=== PATIENT | female | born 1940 | race Caucasian/White ===

== ENCOUNTER 2018-01-08 16:59 | Inpatient (IN) | payer MEDICARE ==
[~2018-01-08] VITALS: Ht 162.6 cm; Wt 78.5 kg
[~2018-01-08 16:59] MED LIST: ADVAIR 250-501 EACH INH; CALCIUM 600 +1 EAC1 PO; CENTRUM SILVER1 EAC4 PO; CLARITIN10 MG PO; COZAAR 50 MG TA50 M2 PO; CRESTOR10 MG PO; LOPRESSOR25 PO; MAGOX 400400 MG PO; METFORMIN HCL500 MG PO; PLAVIX 75 MG TA75 M1 PO; PROAIR HFA8.5 GM; TRAMADOL 50 MG50 MG PO; WELLBUTRIN 75 M75 M1 PO; levothyroxin; potassium gluconate
[2018-01-08 17:01] VITALS: BP 98/75
--- NOTE | 2018-01-08 17:20 | NUR ---
Karuna SOLER AT BEDSIDE FOR NEBULIZER & ABG DRAW
[2018-01-08 17:34] LABS: HEMATOCRIT 47.7 % (37.0-47.0); HEMOGLOBIN 15.9 gm/dL (12.0-15.0); MCH 30.8 pg (26.0-34.0); MCHC 33.3 g/dL (28.0-37.0); MCV 92.4 fL (80.0-100.0); MPV 9.6 fl. (7.2-11.1); NUCLEATED RBCS 0 /100WBC; PLATELET COUNT* 378 thou/uL (150-400); RBC 5.16 mil/uL (4.20-5.00); RDW-CV 14.5 % (10.5-14.5); WBC 20.2 thou/uL (4.0-11.0)
[2018-01-08 17:39] LABS: BE -4.2 mmol/L (-2 to +3); HCO3 20.7 mmol/L (22.0-26.0); PCO2 37.9 mmHg (35.0-45.0); PO2 98.7 mmHg (75.0-100.0); pH 7.355 (7.340-7.450)
[2018-01-08 17:46] LABS: ANION GAP 9 mmol/L (7-16); BUN 22 mg/dL (7-18); CALCIUM 8.9 mg/dL (8.5-10.1); CHLORIDE 105 mmol/L (98-107); CO2 27 mmol/L (21-32); CREATININE 0.8 mg/dL (0.6-1.3); GLUCOSE 234 mg/dL (70-99); POTASSIUM 4.2 mmol/L (3.5-5.1); SODIUM 141 mmol/L (136-145)
[2018-01-08 17:56] LABS: ALBUMIN 3.1 g/dL (3.4-5.0); ALKALINE PHOSPHATASE 96 U/L (46-116); MAGNESIUM 1.8 mg/dL (1.8-2.4); NT-PRO BRAIN NAT PEPTIDE 67 pg/mL (<300); SGOT 16 U/L (15-37); SGPT 18 U/L (30-65); TOTAL BILIRUBIN 0.3 mg/dL (<0.1-1.0); TOTAL PROTEIN 6.6 g/dL (6.4-8.2); TROPONIN-I LEVEL <0.06 ng/mL (<0.06)
[2018-01-08] MEDS ORDERED: SYNTHROID137 MC1 PO (18:02)
[2018-01-08] MEDS ORDERED: NEURONTIN 300300 M1 PO (18:06)
[2018-01-08] MEDS ORDERED: DALIRESP500 MCG PO (18:08)
[2018-01-08 18:33] LABS: ABSOLUTE LYMPHOCYTES 5.5 thou/uL (0.8-5.3); ABSOLUTE MONOCYTES 1.4 thou/uL (0.0-1.2); ABSOLUTE NEUTROPHILS 13.3 thou/uL (1.6-8.1); PLATELET ESTIMATE ADEQUATE
[2018-01-08 18:43] LABS: PROTIME 10.2 Seconds (9.20-11.50)
[2018-01-08] MEDS ORDERED: SINGULAIR 10 MG10 M1 PO (19:05)
[2018-01-08] MEDS ORDERED: CHANTIX1 MG PO (19:06)
[2018-01-08] MEDS ORDERED: MUCINEX DM ER1 EAC1 PO (19:07)
[2018-01-08] MEDS ORDERED: ANTIDIARRHEAL PO (19:07)
[2018-01-08] MEDS ORDERED: CULTURELLE1 EACH PO (19:08)
[2018-01-08] MEDS ORDERED: TYLENOL EXTRA500 MG PO (19:08)
[2018-01-08] MEDS ORDERED: POTASSIUM GLUCO99 M2 PO (19:09)
[2018-01-08] MEDS ORDERED: ZANTAC 150MG T150 MG PO (19:10)
[2018-01-08] MEDS ORDERED: SPIRIVA RESPIMAT4 G1 NASAL (19:11)
[2018-01-08] MEDS ORDERED: ADVAIR 500-501 EACH INH (19:12)
[2018-01-08] MEDS ORDERED: PROAIR HFA8.5 GM INH (19:12)
[2018-01-08 20:17] VITALS: BP 120/63
[2018-01-09] VITALS (7 sets, daily range): BP systolic 115–152; BP diastolic 51–69
--- NOTE | 2018-01-09 04:19 | NUR ---
END SHIFT: PT RESTED WELL. NO COMPLAINTS, NO PAIN. ASSESSMENT UNCHANGED. VSS. REAMINS ON 3L NC. NO HIVES NOTED ON PATIENT AT THIS TIME. SR/ST ON MONITOR. IVF INFUSING WITHOUT DIFFICUTLY. SAFETY PRECAUTIONS IN PLACE. CALL LIGHT IN REACH. PERFORMED HOURLY ROUNDING. WILL CONT TO MONITOR.
[2018-01-09 10:11] LABS: ABSOLUTE LYMPHOCYTES 0.7 thou/uL (0.8-5.3); ABSOLUTE MONOCYTES 0.1 thou/uL (0.0-1.2); ABSOLUTE NEUTROPHILS 9.6 thou/uL (1.6-8.1); BASOPHILS 0.1 %; LYMPHOCYTES 7.2 %; MCHC 33.1 g/dL (28.0-37.0); MCV 93.5 fL (80.0-100.0); MONOCYTES 0.8 %; MPV 9.5 fl. (7.2-11.1); NUCLEATED RBCS 0 /100WBC; POLYS 91.9 %; RBC 3.95 mil/uL (4.20-5.00); RDW-CV 14.6 % (10.5-14.5); WBC 10.4 thou/uL (4.0-11.0)
[2018-01-09 10:22] LABS: CALCIUM 8.2 mg/dL (8.5-10.1); CREATININE 0.7 mg/dL (0.6-1.3); POTASSIUM 4.9 mmol/L (3.5-5.1)
[2018-01-09 10:31] LABS: ALBUMIN 2.7 g/dL (3.4-5.0); TOTAL BILIRUBIN 0.3 mg/dL (<0.1-1.0); TOTAL PROTEIN 5.6 g/dL (6.4-8.2)
[2018-01-09 10:43] LABS: HEMOGLOBIN 12.3 gm/dL (12.0-15.0); PLATELET COUNT* 235 thou/uL (150-400)
--- NOTE | 2018-01-09 10:46 | NUR ---
Nutrition: Pt admitted with lactic acidosis 2/2 anaphylaxis, hives. H/o COPD, DM II, PN, chr pain, smoker. Consult received for ">20# wt loss." Pt stated she usually weighs 180-185#. Current wt is 174#. She denied 20# loss. She did state she doesn't have much of an appetite, but is not active at all. "I eat when I'm hungry." She also tries to drink Boost at home on occ. RX: steroids, metformin. BG 178-259, albumin 2.7. CHO controlle ddiet. She agreed to Glucerna vanilla at lunches - RD will order. Consider Mild risk.
--- NOTE | 2018-01-09 11:56 | NUR ---
MET WITH PT AND DTR/JUSTIN TO DISCUSS HOME SITUATION/DC PLANNING. PT AND JUSTIN LIVE TOGETHER. JUSTIN WORKS NIGHTS AND SLEEPS DURING THE DAY. PT IS FAIRLY INDEPENDENT WITH ADLS. USES WALKER, O2 AND NEB THRU [facility] AND HAS A W/C IF NEEDED. PT STATES HER O2 IS FOR NOC AND PORTABLE BUT 'I LIKE IT' SO I WEAR IT DURING THE DAY TOO. PT STATED SHE HAS TRIED TO GET A PORTABLE CONCENTRATER THRU [facility] BUT DIDN'T 'QUALIFY'. PT HASN'T HAD HH BUT HER DID THRU [facility]. PT THINKS SHE MAY WANT HH AT DC. PLANS TO RETURN HOME WTIH HER DTR AND HOPES TO GO SOON. WILL FOLLOW
[2018-01-09 14:12] LABS: URINE BILIRUBIN NEGATIVE (Negative); URINE BLOOD NEGATIVE (Negative); URINE CLARITY CLEAR; URINE COLOR YELLOW; URINE GLUCOSE-RANDOM 3+ (Negative); URINE KETONES TRACE (Negative); URINE LEUKOCYTES-REFLEX NEGATIVE (Negative); URINE NITRITE-REFLEX NEGATIVE (Negative); URINE PROTEIN NEGATIVE (Negative); URINE SPECIFIC GRAVITY >= 1.030 (1.005-1.030); URINE UROBILINOGEN 0.2 E.U./dl (0.2-1.0)
--- NOTE | 2018-01-09 16:23 | EKG ---
[place] [address] ELECTROCARDIOGRAM REPORT Name: JENNY CAMPA Room: [address] ADM IN .R.#: [id number] Admission: 01/08/18 Attend Phys: Brina Zafar MD Discharge: Date of : 38 Report #: [id number] THIS REPORT FOR: //name// [facility] ED Test Date: 2018-01-08 Test Time: 17:35:45 Pat Name: JENNY CAMPA Department: Room: [facility] Gender: F Parachute Crown Sewer: : 1940 Requested By: Lisa Erwin Order Number: [id number] MD: Kalyan Simon Measurements Intervals [place] Rate: 106 P: 83 [place]: 155 QRS: 61 QRSD: 95 T: 60 QT: 352 QTc: 468 Interpretive Statements Sinus tachycardia Low voltage, extremity and precordial leads No previous ECG available for comparison Electronically Signed On 01-09-2018 16:23:10 CDT by Kaylan Simon [email or web address] <ELECTRONICALLY SIGNED> By: Kalyan Simon MD, [facility] 01/09/18 1623 1735 1735 Kalyan Simon MD, FACC /EPI
--- NOTE | 2018-01-09 17:04 | NUR ---
ASSUMED CARE OF PT AT 0720. PT REMAINS A&O X4 CALM AND COOPERATIVE. PT HAS HAD NO C/O PAIN OR DISTRESS. PT VSS ON 4L VIA NC. PT DOES BECOME SOA ON EXERTION AND LAYING FLAT. PT ALSO HAD HAD C/O SINUS DRAINAGE AND WAS GIVEN PRN MUCINEX THAT SHE REPORTED WAS EFFECTIVE. PT UP AD JOAQUIM AND HAS BEEN AMBULATING TO THE BATHROOM TO VOID. HOURLY ROUNDING COMPLETED FOR SAFTEY AND COMFORT.
--- NOTE | 2018-01-09 18:15 | NUR ---
REPORT GIVEN AND ASSUMED PATIENT CARE PATIENT IN BED AND EATING SUPPER, NO REQUESTS
[2018-01-10] VITALS: BP 152/69
[2018-01-10 02:11] LABS: GLYCOHEMOGLOBIN (HGB A1C) 5.6 % (4.8-5.6)
[2018-01-10 04:00] VITALS: BP 146/96
--- NOTE | 2018-01-10 04:08 | NUR ---
PATIENT PROGRESSING TOWARDS GOALS: PATIENTS O2 SAT MAINTAINED >92% ON 2L O2 NC (WHICH PATIENT WEARS CHRONICALLY AT HOME). PATIENT HAS RESTED COMFORTABLY WITHOUT C/O PAIN OR DISCOMFORT. PATIENT STATES SHE FEELS THOUGH HER "BREATHING IS MUCH BETTER." HOURLY ROUNDING OBSERVED. CALL LIGHT WITHIN REACH
[2018-01-10 08:00] VITALS: BP 113/70
--- NOTE | 2018-01-10 08:27 | NUR ---
ASSUMED CARE OF PT AT 0730. PT RESTING IN BED WAITING FOR BREAKFAST. PT A&0X4, DENIES ANY PAIN OR SHORTNESS OF BREATH AT THIS TIME. PT STATES SHE WANTS TO GO HOME. PT TRACING SR ON THE FLIGHT ATTENDANT. ON RA SAT 91%. PT WEARS 2L NC PRN AT HOME DURING THE DAY AND AT NOC, 02 NEARBY IF PT FEELS SHORT OF BREATH. PT UP WITH 1 ASSIST TO BATHROOM. PT GOAL FOR TODAY IS REPEAT CXR THIS AM, UP TO CHAIR FOR MEALS, INCREASE ACTIVITY AND POSSIBLE DISCHARGE HOME THIS AFTERNOON. AM ASSESSMENT CHARTED. MEDICATIONS PER JUL. PT REPOSITIONS SELF. HOURLY ROUNDING OBSERVED. BED IN LOW POSITION. CALL LIGHT WITHIN REACH. WILL CONTINUE PLAN OF CARE.
[2018-01-10] MEDS ORDERED: PROBIOTIC1 EAC1 PO (08:34)
[2018-01-10] MEDS ORDERED: LEVAQUIN 750 M750 MG PO (08:34)
[2018-01-10] MEDS ORDERED: PREDNISONE 10 M10 M1 PO (08:34)
[2018-01-10] MEDS ORDERED: DALIRESP500 MCG PO (08:34)
[2018-01-10 11:24] VITALS: BP 113/70
--- NOTE | 2018-01-10 13:29 | NUR ---
DISCHARGE ORDERS RECEIVED. DISCHARGE INSTRUCTIONS, CARE NOTES, SCRIPTS AND FOLLOW UP APPTS GIVEN TO PT. PT COMMUNICATES UNDERSTANDING OF DISCHARGE TEACHING. IV AND HAND FINISHER REMOVED. PT DISCHARGED WITH ALL BELONGINGS AND PAPERWORK VIA WHEELCHAIR WITH NURSING STAFF TO DAUGHTERS OWN PERSONAL VEHICLE.
== END 2018-01-10 13:27 | disposition home or self-care (01) | DRG 915 ==
LOC: M.ERS 16:59 → M.2W 18:39 → M.TBA-ER 18:39 → M.2W 20:37
PROVIDERS: Internal Medicine; Personal Emergency Response Attendant; ADMIT Internal Medicine
DX: T78.2XXA Anaphylactic shock, unspecified, initial encounter (principal); J18.9 Pneumonia, unspecified organism; J44.0 Chronic obstructive pulmonary disease with (acute) lower respiratory infection; E87.2 Acidosis; J44.1 Chronic obstructive pulmonary disease with (acute) exacerbation; J45.901 Unspecified asthma with (acute) exacerbation; E03.9 Hypothyroidism, unspecified; F32.9 Major depressive disorder, single episode, unspecified; E11.42 Type 2 diabetes mellitus with diabetic polyneuropathy; J20.9 Acute bronchitis, unspecified; I25.10 Atherosclerotic heart disease of native coronary artery without angina pectoris; F17.210 Nicotine dependence, cigarettes, uncomplicated; X58.XXXA Exposure to other specified factors, initial encounter; Y93.89 Activity, other specified; Y92.89 Other specified places as the place of occurrence of the external cause; Y99.8 Other external cause status; Z99.81 Dependence on supplemental oxygen; Z79.84 Long term (current) use of oral hypoglycemic drugs; Z79.899 Other long term (current) drug therapy; Z88.2 Allergy status to sulfonamides; Z88.6 Allergy status to analgesic agent; Z91.040 Latex allergy status; Z82.5 Family history of asthma and other chronic lower respiratory diseases; Z80.8 Family history of malignant neoplasm of other organs or systems

== ENCOUNTER 2018-02-05 01:09 | Emergency (ER) | payer MEDICARE ==
[~2018-02-05] VITALS: Ht 160 cm; Wt 71.2 kg
[~2018-02-05 01:09] MED LIST changes: +ADVAIR 500-501 EACH INH; +ANTIDIARRHEAL PO; +CHANTIX1 MG PO; +CULTURELLE1 EACH PO; +DALIRESP500 MCG PO; +LEVAQUIN 750 M750 MG PO; +MUCINEX DM ER1 EAC1 PO; +NEURONTIN 300300 M1 PO; +POTASSIUM GLUCO99 M2 PO; +PREDNISONE 10 M10 M1 PO; +PROAIR HFA8.5 GM INH; +PROBIOTIC1 EAC1 PO; +SINGULAIR 10 MG10 M1 PO; +SPIRIVA RESPIMAT4 G1 NASAL; +SYNTHROID137 MC1 PO; +TYLENOL EXTRA500 MG PO; +ZANTAC 150MG T150 MG PO
[2018-02-05] MEDS ORDERED: PREDNISONE50 MG PO (02:20)
[2018-02-05 03:00] VITALS: BP 99/63
== END 2018-02-05 03:01 | disposition home or self-care (01) ==
LOC: M.ERS 01:09
DX: L50.9 Urticaria, unspecified (principal); R11.2 Nausea with vomiting, unspecified; I25.10 Atherosclerotic heart disease of native coronary artery without angina pectoris; J44.9 Chronic obstructive pulmonary disease, unspecified; E11.40 Type 2 diabetes mellitus with diabetic neuropathy, unspecified; E03.9 Hypothyroidism, unspecified; I10 Essential (primary) hypertension; F17.210 Nicotine dependence, cigarettes, uncomplicated; Z88.2 Allergy status to sulfonamides; Z91.040 Latex allergy status; Z88.6 Allergy status to analgesic agent

== ENCOUNTER → 2018-02-12 | Outpatient (CLI) | payer MEDICARE ==
[~2018-02-12] MED LIST changes: +PREDNISONE50 MG PO
== END ==
LOC: M.ULTRA 11:00
DX: I65.23 Occlusion and stenosis of bilateral carotid arteries (principal); J45.909 Unspecified asthma, uncomplicated; E11.9 Type 2 diabetes mellitus without complications; I10 Essential (primary) hypertension; E03.9 Hypothyroidism, unspecified; G89.29 Other chronic pain; J44.9 Chronic obstructive pulmonary disease, unspecified; Z87.891 Personal history of nicotine dependence; I25.10 Atherosclerotic heart disease of native coronary artery without angina pectoris; Z72.89 Other problems related to lifestyle

== ENCOUNTER 2018-04-20 09:49 | Inpatient (IN) | payer MEDICARE ==
[~2018-04-20] VITALS: Ht 162.6 cm; Wt 66.7 kg
[2018-04-20 09:56] VITALS: BP 116/71
[2018-04-20] MEDS ORDERED: CHANTIX1 MG PO (10:04)
[2018-04-20 10:23] LABS: HEMOGLOBIN 14.1 gm/dL (12.0-15.0); MCH 30.9 pg (26.0-34.0); MCHC 33.5 g/dL (28.0-37.0); MCV 92.4 fL (80.0-100.0); MPV 8.6 fl. (7.2-11.1); NUCLEATED RBCS 0 /100WBC; PLATELET COUNT* 287 thou/uL (150-400); RBC 4.54 mil/uL (4.20-5.00); RDW-CV 15.2 % (10.5-14.5); WBC 20.2 thou/uL (4.0-11.0)
[2018-04-20 10:36] LABS: ANION GAP 10 mmol/L (7-16); BUN 13 mg/dL (7-18); CALCIUM 9.3 mg/dL (8.5-10.1); CHLORIDE 102 mmol/L (98-107); CO2 29 mmol/L (21-32); CREATININE 0.8 mg/dL (0.6-1.3); GLUCOSE 123 mg/dL (70-99); POTASSIUM 3.5 mmol/L (3.5-5.1); SODIUM 141 mmol/L (136-145)
[2018-04-20 10:40] LABS: APTT 29.3 Seconds (25.0-31.3); PROTIME 10.3 Seconds (9.20-11.50)
[2018-04-20 10:42] LABS: ALBUMIN 3.4 g/dL (3.4-5.0); ALKALINE PHOSPHATASE 101 U/L (46-116); LIPASE 90 U/L (73-393); SGOT 16 U/L (15-37); SGPT 19 U/L (30-65); TOTAL BILIRUBIN 0.7 mg/dL (<0.1-1.0); TOTAL PROTEIN 7.5 g/dL (6.4-8.2); TROPONIN-I LEVEL <0.06 ng/mL (<0.06)
[2018-04-20 11:09] LABS: ABSOLUTE BASOPHILS 0.2 thou/uL (0.0-0.2); ABSOLUTE EOSINOPHILS 0.2 thou/uL (0.0-0.7); ABSOLUTE MONOCYTES 1.6 thou/uL (0.0-1.2); ABSOLUTE NEUTROPHILS 17.2 thou/uL (1.6-8.1)
[2018-04-20 11:10] LABS: ANISOCYTOSIS Occasional; PLATELET ESTIMATE ADEQUATE
[2018-04-20 13:06] VITALS: BP 126/70
[2018-04-20 13:45] VITALS: BP 97/76
--- NOTE | 2018-04-20 13:45 | NUR ---
RECEIVED REPORT. PT TRANSFERRED TO ROOM 211 VIA CART. VSS. CARDIAC MONITORING IN PLACE SR. ADMISSION HISTORY AND ASSESSMENT COMPLETED CHARTED. PT ALERT AND ORIETNED BUT FORGETFUL. PT ON 2L PER NC. PT WEARS O2 AT HOME. O2 SAT 97%. IV SALINE LOCKED. PT DNEIES ANY PAIN AT THIS TIME. PT DOES REPORT GENERALIZED WEAKNESS. PT'S DTR AT BEDSIDE. PT ORIENTED TO ROOM AND CALL LIGHT. PT INFORMED OF FALL PRECATIONS DUE TO RECENT FALL. CALL LIGHT IS WITHIN REACH. BED ALARM ON FOR PT SAFETFY. WILL CONTINUE TO MONTIOR FOR DURAITON OF SHIFT.
[2018-04-20 16:23] VITALS: BP 107/49
--- NOTE | 2018-04-20 18:28 | NUR ---
VSS. CARDIAC MONTITORING IN PLACE WITH NO CHANGES THIS SHIFT. PT REMAINS ALERT AND ORIENTED. PT REMAINS ON 2L PER NC. PT BECOMES SOA WITH EXERTION. IVF INFUSING PER ORDERS. PT HAS HAD NO PAIN THIS SHIFT. PT IS UP WITH ASSISTANCE TO BSC. PT INFORMED OF PLAN OF CARE. CALL LIGHT IS WITHIN REAHC. WILL CONTINUE TO MONTIOR FOR DURATION OF SHIFT.
[2018-04-20 19:40] VITALS: BP 106/59
[2018-04-20 20:15] LABS: URINE BILIRUBIN NEGATIVE (Negative); URINE BLOOD NEGATIVE (Negative); URINE CLARITY CLEAR; URINE COLOR YELLOW; URINE GLUCOSE-RANDOM 1+ (Negative); URINE KETONES 1+ (Negative); URINE LEUKOCYTES-REFLEX NEGATIVE (Negative); URINE NITRITE-REFLEX NEGATIVE (Negative); URINE PROTEIN NEGATIVE (Negative); URINE SPECIFIC GRAVITY >= 1.030 (1.005-1.030); URINE UROBILINOGEN 0.2 E.U./dl (0.2-1.0)
[2018-04-21] VITALS (7 sets, daily range): BP systolic 97–131; BP diastolic 50–67
--- NOTE | 2018-04-21 05:12 | NUR ---
PT UP TP BSC, TOLERATED TRANSFER WELL. CONTINUES ON 2L NC. PT SR ON MONITOR. NO C/O PAIN THROUGHOUT SHIFT.
--- NOTE | 2018-04-21 07:52 | NUR ---
RECIEVED REPORT. ASSUMED CARE OF PT AT 0730. VSS. CARDIAC MONITORING IN PLACE SR. AM ASSESSMENT AND VITALS COMPLETED CHARTED. PT ALERT AND ORIENTED. PT ON 2L PER NC. PT BECOMES SOA WITH EXERTION. IV SALINE LOCKED. PT DENIES ANY PAIN OR DISCOMFORT THIS AM. PT IS UP WITH ASSISTANCE TO BSC. PT AND FAMILY INFORMED OF PLAN OF CARE. CALL LIGHT IS WITHIN REACH. WILL CONTINUE TO [facility] FOR DURATION OF SHIFT.
--- NOTE | 2018-04-21 11:08 | EKG ---
[place] [address] ELECTROCARDIOGRAM REPORT Name: JENNY CAMPA Room: [address] ADM IN .R.#: [id number] Admission: 04/20/18 Attend Phys: Susan Alcantara Discharge: Date of : 38 Report #: [id number] THIS REPORT FOR: //name// [facility] ED Test Date: 2018-04-20 Test Time: 10:04:44 Pat Name: JENNY CAMPA Department: Room: [address] Gender: F Documentation Lead: Gilbert PIMENTEL : 1940 Requested By: Cosmo Wallis Order Number: [id number] Reading MD: Yobani Mayers Measurements Intervals [place] Rate: 87 P: 76 NV: 196 QRS: 67 QRSD: 96 T: 55 QT: 375 QTc: 451 Interpretive Statements Sinus rhythm Compared to ECG 01/08/2018 17:35:45 Sinus tachycardia no longer present Electronically Signed On 04-21-2018 11:08:29 LICENSED MARINE ENGINEER by Yobani Mayers [email or web address] <ELECTRONICALLY SIGNED> By: Yobani Mayers MD, FACC 04/21/18 1108 1004 1004 Yobani Mayers MD, [facility] /EPI
--- NOTE | 2018-04-21 11:09 | EKG ---
[place] [address] ELECTROCARDIOGRAM REPORT Name: JENNY CAMPA Room: [address] ADM IN .R.#: [id number] Admission: 04/20/18 Attend Phys: Susan Alcantara Discharge: Date of : 38 Report #: [id number] THIS REPORT FOR: //name// [facility] Test Date: 2018-04-20 Test Time: 16:18:46 Pat Name: JENNY LOKESH Department: Room: [facility] Gender: F Elementary Secretary: JNADEEN : 1940 Requested By: Cosmo Wallis Order Number: [id number] MD: Yobani Mayers Measurements Intervals [place] Rate: 87 P: 81 TN: 186 QRS: 67 QRSD: 92 T: 57 QT: 389 QTc: 468 Interpretive Statements Sinus rhythm Baseline wander in lead(s) V1,V2 Compared to ECG 01/08/2018 17:35:45 Sinus tachycardia no longer present Electronically Signed On 04-21-2018 11:09:26 MITOCHONDRIAL DISORDERS COUNSELOR by Yobani Mayers [email or web address] <ELECTRONICALLY SIGNED> By: Yobani Mayers MD, FAC 04/21/18 1109 1618 1618 Yobani Mayers MD, [facility] /EPI
--- NOTE | 2018-04-21 11:10 | EKG ---
[place] [address] ELECTROCARDIOGRAM REPORT Name: JENNY CAMPA Room: [address] ADM IN M.R.#: [id number] Admission: 04/20/18 Attend Phys: Susan Alcantara Discharge: Date of : 38 Report #: [id number] THIS REPORT FOR: //name// [facility] Test Date: 2018-04-20 Test Time: 21:53:54 Pat Name: JENNY LOKESH Department: Room: [address] Gender: F Kiln Placer: [facility] : 1940 Requested By: Cosmo Wallis Order Number: [id number] Reading MD: Yobani Mayers Measurements Intervals [place] Rate: 82 P: 79 [place]: 179 QRS: 66 QRSD: 99 T: 55 QT: 403 QTc: 471 Interpretive Statements Sinus rhythm Compared to ECG 01/08/2018 17:35:45 Sinus tachycardia no longer present Electronically Signed On 04-21-2018 11:10:23 PAD HAND by Yobani Mayers [email or web address] <ELECTRONICALLY SIGNED> By: Yobani Mayers MD, [facility] 04/21/18 1110 52 52 Yobani Mayers MD, [facility] /EPI
--- NOTE | 2018-04-21 12:21 | NUR ---
Pt is A&O. Resides at home with her dtr. Dtr completes most of the ADLs. Pt states that she is able to complete her bathing and grooming. Pt has a walker, wc, home o2, neb and an [employer] portable concentrator. CM spoke with PT, Pt is hesitant to use her walker second to fear/safety. Dtr requesting HH at dc for Pt, Pt in agreement. No hx of HH or SNF. Pt in agreement with using [facility] at dc. Following.
--- NOTE | 2018-04-21 17:21 | NUR ---
VSS. CARDIAC MONTIORING IN PLACE WITH NO CHANGES THIS SHIFT. PT REMAINS ALERT AND OREINTED. PT PROGRESSING TOWARDS GOALS. PT REMAINS ON 2L PER NC. IV SALINE LOCKED. PT DENIES ANY PAIN OR DISCOMFORT THIS AM. PT WORKED WITH THERAPIES THIS SHIFT. PT INFORMED OF PLAN OF CARE. PT COMMUNICATES UNDERSTANDING. CALL LIGHT IS WITHIN REACH. WILL CONTINUE TO MONITOR FOR DURATION OF SHIFT.
[2018-04-22 04:26] VITALS: BP 98/61
--- NOTE | 2018-04-22 06:50 | NUR ---
PROGRESSING TOWARDS GOALS, DENIES DIZZYNESS OR VERTIGO. RESTING QUIETLY WITH EYES CLOSED INTERMITTENTLY THROUGHOUT NOC, UP TO BR WITH SBA, NUMBNESS/TINGLING BILAT FEET- CHRONIC PER PT, HX NEUROPATHY. STATES SCHEDULED NEUROTIN EFFECTIVE FOR NEUROPATHY TYPE PAIN TO BILAT FEET. OXYGEN 2L PER NC, SOA WITH AMBULATION RESOLVED WITH REST. UP TO BR WITH SBA AND USE OF WALKER, SLOW STEADY GAIT. DIABETIC VERBAL EDUCATION PROVIDED. BS 260 NOC, PER SS PROTOCOL ORDER, 6UNITS LISPRO SQ GIVEN. USING CALL LIGHT APPROPRIATELY. CALL LIGHT IN REACH. AWAKE, ALERT AND CONVERSATIVE AT THIS TIME.
[2018-04-22 08:00] VITALS: BP 104/43
[2018-04-22 12:00] VITALS: BP 102/47
[2018-04-22 12:29] VITALS: BP 103/45
[2018-04-22 15:30] VITALS: BP 155/50
[2018-04-22 20:00] VITALS: BP 125/39
[2018-04-23] VITALS: BP 106/42
[2018-04-23 04:00] VITALS: BP 119/72
--- NOTE | 2018-04-23 04:40 | NUR ---
PT SR ON MONITOR. RESTING IN BED. SOB WITH EXERTION. PT POTENTIALLY TO D/C TODAY. NO C/O PAIN THROUGHOUT THIS SHIFT.
[2018-04-23 08:07] VITALS: BP 130/56
[2018-04-23] MEDS ORDERED: PREDNISONE 10 M10 MG PO ×2 (11:03→11:19)
[2018-04-23] MEDS ORDERED: VENTOLIN HFA 1818 GM INH ×2 (11:03→11:19)
[2018-04-23] MEDS ORDERED: LEVAQUIN 750 M750 MG PO ×2 (11:03→11:19)
[2018-04-23 12:00] VITALS: BP 137/64
[2018-04-23 13:05] VITALS: BP 130/56
[2018-04-23 13:39] VITALS: BP 130/56
--- NOTE | 2018-04-23 13:41 | NUR ---
Pt discharging to home today, CM faxed dc orders to [facility]
--- NOTE | 2018-04-23 13:50 | NUR ---
PT DC'D HOME WITH ALL BELONGINGS. PT ACKNOWLEDGED DC INSTRUCTIONS AND MEDICATIONS. PT SENT WITH 3 RX. PT DENIED ANY C/O NEEDS.
== END 2018-04-23 13:50 | disposition home health service (06) | DRG 189 ==
LOC: M.ERS 09:49 → M.2W 11:53 → M.TBA-ER 11:53 → M.2W 13:50
PROVIDERS: Family Medicine; ADMIT Internal Medicine
DX: J96.00 Acute respiratory failure, unspecified whether with hypoxia or hypercapnia (principal); J44.1 Chronic obstructive pulmonary disease with (acute) exacerbation; R65.10 Systemic inflammatory response syndrome (SIRS) of non-infectious origin without acute organ dysfunction; I10 Essential (primary) hypertension; G89.29 Other chronic pain; R55 Syncope and collapse; I25.10 Atherosclerotic heart disease of native coronary artery without angina pectoris; E03.9 Hypothyroidism, unspecified; F17.210 Nicotine dependence, cigarettes, uncomplicated; E11.40 Type 2 diabetes mellitus with diabetic neuropathy, unspecified; Z99.81 Dependence on supplemental oxygen; Z79.899 Other long term (current) drug therapy; Z88.2 Allergy status to sulfonamides; Z88.6 Allergy status to analgesic agent; Z91.040 Latex allergy status; Z88.1 Allergy status to other antibiotic agents; Z79.84 Long term (current) use of oral hypoglycemic drugs

== ENCOUNTER 2018-10-24 16:39 | Emergency (ER) | payer MEDICARE ==
[~2018-10-24] VITALS: Ht 162.6 cm; Wt 72.6 kg
[~2018-10-24 16:39] MED LIST changes: +PREDNISONE 10 M10 MG PO; +VENTOLIN HFA 1818 GM INH
[2018-10-24 17:34] LABS: ABSOLUTE BASOPHILS 0.1 thou/uL (0.0-0.2); ABSOLUTE EOSINOPHILS 0.3 thou/uL (0.0-0.7); ABSOLUTE LYMPHOCYTES 1.8 thou/uL (0.8-5.3); ABSOLUTE MONOCYTES 0.9 thou/uL (0.0-1.2); ABSOLUTE NEUTROPHILS 7.7 thou/uL (1.6-8.1); BASOPHILS 0.6 %; HEMATOCRIT 41.3 % (37.0-47.0); HEMOGLOBIN 13.9 gm/dL (12.0-15.0); LYMPHOCYTES 16.7 %; MCH 31.3 pg (26.0-34.0); MCHC 33.7 g/dL (28.0-37.0); MCV 92.9 fL (80.0-100.0); MONOCYTES 8.6 %; MPV 8.9 fl. (7.2-11.1); NUCLEATED RBCS 0 /100WBC; PLATELET COUNT* 259 thou/uL (150-400); POLYS 71.1 %; RBC 4.44 mil/uL (4.20-5.00); RDW-CV 14.9 % (10.5-14.5); WBC 10.8 thou/uL (4.0-11.0)
[2018-10-24 17:39] LABS: ANION GAP 7 mmol/L (7-16); BUN 17 mg/dL (7-18); CALCIUM 9.2 mg/dL (8.5-10.1); CHLORIDE 103 mmol/L (98-107); CO2 33 mmol/L (21-32); CREATININE 0.7 mg/dL (0.6-1.3); GLUCOSE 175 mg/dL (70-99); SODIUM 143 mmol/L (136-145)
[2018-10-24 17:49] LABS: ALKALINE PHOSPHATASE 117 U/L (46-116); SGOT 13 U/L (15-37); SGPT 17 U/L (30-65); TOTAL BILIRUBIN 0.6 mg/dL (<0.1-1.0); TOTAL PROTEIN 7.1 g/dL (6.4-8.2); TROPONIN-I LEVEL <0.06 ng/mL (<0.06)
[2018-10-24] MEDS ORDERED: ZPAK PO (18:50)
[2018-10-24 19:22] VITALS: BP 112/46
--- NOTE | 2018-10-27 14:28 | EKG ---
[place] [address] ELECTROCARDIOGRAM REPORT Name: JENNY CAMPA Room: [facility]#: [id number] Admission: 10/24/18 Attend Phys: Discharge: 10/24/18 Date of : 38 Report #: [id number] THIS REPORT FOR: //name// [facility] ED Test Date: 2018-10-24 Test Time: 16:57:50 Pat Name: JENNYKORIN CAMPA Department: Room: Gender: F Fur Coat Sewer: : 1940 Requested By: Lawrence Schreiber Order Number: [id number] MD: Kalyan Simon Measurements Intervals [place] Rate: 90 P: 83 AR: 179 QRS: 66 QRSD: 90 T: 58 QT: 352 QTc: 431 Interpretive Statements Sinus rhythm Compared to ECG 04/20/2018 21:53:54 No significant changes Electronically Signed On 10-27-2018 14:28:23 CDT by Kalyan Simon [email or web address] <ELECTRONICALLY SIGNED> By: Kalyan Simon MD, [facility] 10/27/18 1428 1657 1657 Kalyan Simon MD, FACC /EPI
== END 2018-10-24 19:23 | disposition home or self-care (01) ==
LOC: M.ERS 16:39
PROVIDERS: Nurse Practitioner Family
DX: J44.9 Chronic obstructive pulmonary disease, unspecified (principal); E11.40 Type 2 diabetes mellitus with diabetic neuropathy, unspecified; E03.9 Hypothyroidism, unspecified; I10 Essential (primary) hypertension; I25.10 Atherosclerotic heart disease of native coronary artery without angina pectoris; G89.29 Other chronic pain; F17.210 Nicotine dependence, cigarettes, uncomplicated; Z88.6 Allergy status to analgesic agent; Z88.2 Allergy status to sulfonamides; Z91.040 Latex allergy status

== ENCOUNTER 2019-11-17 15:43 | Emergency (ER) | payer MEDICARE ==
[~2019-11-17] VITALS: Ht 162.6 cm; Wt 83.5 kg
[~2019-11-17 15:43] MED LIST changes: +ZPAK PO
[2019-11-17 16:11] LABS: ABSOLUTE BASOPHILS 0.1 thou/uL (0.0-0.2); ABSOLUTE LYMPHOCYTES 1.3 thou/uL (0.8-5.3); ABSOLUTE MONOCYTES 0.4 thou/uL (0.0-1.2); ABSOLUTE NEUTROPHILS 9.8 thou/uL (1.6-8.1); BASOPHILS 0.6 %; EOSINOPHILS 0.1 %; HEMOGLOBIN 14.2 gm/dL (12.0-15.0); LYMPHOCYTES 11.3 %; MCH 32.3 pg (26.0-34.0); MCHC 34.7 g/dL (28.0-37.0); MONOCYTES 3.2 %; NUCLEATED RBCS 0 /100WBC; PLATELET COUNT* 300 thou/uL (150-400); POLYS 84.8 %; RBC 4.41 mil/uL (4.20-5.00); WBC 11.6 thou/uL (4.0-11.0)
[2019-11-17 16:19] LABS: APTT 23.5 Seconds (25.0-31.3); PROTIME 10.2 Seconds (9.20-11.50)
[2019-11-17 16:22] LABS: POTASSIUM 4.3 mmol/L (3.5-5.1)
[2019-11-17 16:35] LABS: ALBUMIN 3.6 g/dL (3.4-5.0); MAGNESIUM 1.8 mg/dL (1.8-2.4); TOTAL BILIRUBIN 0.4 mg/dL (<0.1-1.0); TOTAL PROTEIN 7.5 g/dL (6.4-8.2)
[2019-11-17] MEDS ORDERED: PREDNISONE 20 M20 M1 PO (17:28)
[2019-11-17] MEDS ORDERED: ZPAK PO (17:28)
[2019-11-17 17:36] VITALS: BP 141/87
--- NOTE | 2019-11-18 10:39 | EKG ---
[place] [address] ELECTROCARDIOGRAM REPORT Name: JENNY CAMPA Room: [facility]#: [id number] Admission: 11/17/19 Attend Phys: Discharge: 11/17/19 Date of : 38 Date of Service: 11/17/19 1600 Report #: [id number] THIS REPORT FOR: //name// [facility] ED Test Date: 2019-11-17 Test Time: 16:00:57 Pat Name: JENNY CAMPA Department: Room: Gender: Director Of Analytics: [facility] : 1940 Requested By: Cosmo Wallis Order Number: [id number] MD: Justino Daigle Measurements Intervals [place] Rate: 96 P: 84 TX: 167 QRS: 61 QRSD: 95 T: 61 QT: 370 QTc: 468 Interpretive Statements Sinus rhythm Abnormal R-wave progression, early transition Compared to ECG 10/24/2018 16:57:50 No significant changes Electronically Signed On 11-18-2019 10:38:56 CDT by Justino Daigle [email or web address] <ELECTRONICALLY SIGNED> By: Justino Daigle MD, FAC 11/18/19 1038 1600 1600 Justino Daigle MD, [facility] /EPI
== END 2019-11-17 17:37 | disposition home or self-care (01) ==
LOC: M.ERS 15:43
PROVIDERS: Family Medicine
DX: J96.90 Respiratory failure, unspecified, unspecified whether with hypoxia or hypercapnia (principal); J44.9 Chronic obstructive pulmonary disease, unspecified; Z20.828 Contact with and (suspected) exposure to other viral communicable diseases; E11.40 Type 2 diabetes mellitus with diabetic neuropathy, unspecified; I10 Essential (primary) hypertension; I25.10 Atherosclerotic heart disease of native coronary artery without angina pectoris; E03.9 Hypothyroidism, unspecified; G89.29 Other chronic pain; F17.210 Nicotine dependence, cigarettes, uncomplicated; Z88.6 Allergy status to analgesic agent; Z91.040 Latex allergy status; Z88.0 Allergy status to penicillin; Z91.018 Allergy to other foods

== ENCOUNTER 2020-06-14 21:35 | Emergency (ER) | payer MEDICARE ==
[~2020-06-14] VITALS: Ht 160 cm; Wt 74.9 kg
[~2020-06-14 21:35] MED LIST changes: +PREDNISONE 20 M20 M1 PO
[2020-06-14] MEDS ORDERED: PLAVIX 75 MG TA75 MG PO (21:43)
[2020-06-14] MEDS ORDERED: LEVOTHYROXINE137 MC1 PO (21:43)
[2020-06-14] MEDS ORDERED: ROSUVASTATIN CA10 MG PO (21:44)
[2020-06-14] MEDS ORDERED: GRALISE600 MG PO (21:44)
[2020-06-14] MEDS ORDERED: SINGULAIR 10 MG10 MG PO (21:44)
[2020-06-14] MEDS ORDERED: DALIRESP500 MCG PO (21:44)
[2020-06-14] MEDS ORDERED: CHANTIX1 MG PO (21:45)
[2020-06-14] MEDS ORDERED: PROBIOTIC1 EAC3 PO (21:45)
[2020-06-14] MEDS ORDERED: ANTI-DIARRHEAL2 M1 PO (21:45)
[2020-06-14] MEDS ORDERED: ATENOLOL 25 MG25 M1 PO (21:46)
[2020-06-14] MEDS ORDERED: METFORMIN HCL500 M3 PO (21:46)
[2020-06-14] MEDS ORDERED: MAGNESIUM400 MG PO (21:46)
[2020-06-14] MEDS ORDERED: POTASSIUM99 M1 PO (21:46)
[2020-06-14] MEDS ORDERED: SPIRIVA18 MCG INH (21:46)
[2020-06-14 22:09] LABS: ABSOLUTE BASOPHILS 0.1 thou/uL (0.0-0.2); ABSOLUTE EOSINOPHILS 0.3 thou/uL (0.0-0.7); ABSOLUTE LYMPHOCYTES 1.2 thou/uL (0.8-5.3); ABSOLUTE MONOCYTES 0.8 thou/uL (0.0-1.2); ABSOLUTE NEUTROPHILS 7.6 thou/uL (1.6-8.1); BASOPHILS 0.8 %; EOSINOPHILS 2.8 %; HEMATOCRIT 39.5 % (37.0-47.0); HEMOGLOBIN 13.2 gm/dL (12.0-15.0); LYMPHOCYTES 12.5 %; MCH 30.4 pg (26.0-34.0); MCHC 33.4 g/dL (28.0-37.0); MCV 90.9 fL (80.0-100.0); MONOCYTES 7.6 %; MPV 8.5 fl. (7.2-11.1); NUCLEATED RBCS 0 /100WBC; PLATELET COUNT* 310 thou/uL (150-400); POLYS 76.3 %; RBC 4.34 mil/uL (4.20-5.00); RDW-CV 14.7 % (10.5-14.5)
[2020-06-14 22:18] LABS: APTT 24.4 Seconds (25.0-31.3)
[2020-06-14 22:21] LABS: ALBUMIN 2.9 g/dL (3.4-5.0); CALCIUM 9.7 mg/dL (8.5-10.1); CREATININE 0.8 mg/dL (0.6-1.3); POTASSIUM 3.1 mmol/L (3.5-5.1); TOTAL BILIRUBIN 0.5 mg/dL (<0.1-1.0); TOTAL PROTEIN 6.9 g/dL (6.4-8.2)
[2020-06-14 23:15] VITALS: BP 120/54
--- NOTE | 2020-06-15 14:17 | EKG ---
[place] [address] ELECTROCARDIOGRAM REPORT Name: JENNY CAMPA Room: [facility]#: [id number] Admission: 06/14/20 Attend Phys: Discharge: 06/14/20 Date of : 38 Date of Service: 06/14/202143 Report #: [id number] THIS REPORT FOR: //name// [facility] ED Test Date: 2020-06-14 Test Time: 21:44:39 Pat Name: JENNY CAMPA Department: Room: Gender: Radio Interference Supervisor: PARUL : 1940 Requested By: Cosmo Wallis Order Number: [id number] MD: Kalyan Simon Measurements Intervals [place] Rate: 122 P: 73 [place]: 114 QRS: 60 QRSD: 92 T: 26 QT: 328 QTc: 468 Interpretive Statements Sinus tachycardia Low voltage, precordial leads Compared to ECG 11/17/2019 16:00:57 Low QRS voltage now present Sinus rate has increased Electronically Signed On 06-15-2020 14:17:18 RACKET STRINGER by Kalyan Simon [email or web address] <ELECTRONICALLY SIGNED> By: Kalyan Simon MD, [facility] 06/15/20 1417 2144 2144 Kalyan Simon MD, [facility] /EPI
== END 2020-06-14 23:15 | disposition home or self-care (01) ==
LOC: M.ERS 21:35
PROVIDERS: Family Medicine
DX: S00.83XA Contusion of other part of head, initial encounter (principal); J44.9 Chronic obstructive pulmonary disease, unspecified; J45.909 Unspecified asthma, uncomplicated; E11.40 Type 2 diabetes mellitus with diabetic neuropathy, unspecified; E03.9 Hypothyroidism, unspecified; I25.10 Atherosclerotic heart disease of native coronary artery without angina pectoris; I10 Essential (primary) hypertension; F17.210 Nicotine dependence, cigarettes, uncomplicated; Z88.6 Allergy status to analgesic agent; Z91.040 Latex allergy status; Z88.2 Allergy status to sulfonamides; Z91.018 Allergy to other foods; W18.39XA Other fall on same level, initial encounter; Y93.89 Activity, other specified; Y92.098 Other place in other non-institutional residence as the place of occurrence of the external cause; Y99.8 Other external cause status

== ENCOUNTER → 2020-10-31 | Outpatient (CLI) | payer MEDICARE ==
[~2020-10-31] MED LIST changes: +ANTI-DIARRHEAL2 M1 PO; +ATENOLOL 25 MG25 M1 PO; +GRALISE600 MG PO; +LEVOTHYROXINE137 MC1 PO; +MAGNESIUM400 MG PO; +METFORMIN HCL500 M3 PO; +PLAVIX 75 MG TA75 MG PO; +POTASSIUM99 M1 PO; +PROBIOTIC1 EAC3 PO; +ROSUVASTATIN CA10 MG PO; +SINGULAIR 10 MG10 MG PO; +SPIRIVA18 MCG INH
== END ==
LOC: M.RAD 10:43
PROVIDERS: ATTEND Family Medicine
DX: M15.0 Primary generalized (osteo)arthritis (principal); E11.9 Type 2 diabetes mellitus without complications; R13.10 Dysphagia, unspecified; R07.0 Pain in throat; E03.9 Hypothyroidism, unspecified; E78.2 Mixed hyperlipidemia; Z99.81 Dependence on supplemental oxygen

== ENCOUNTER 2020-12-01 11:36 | Inpatient (IN) | payer MEDICARE ==
[~2020-12-01] VITALS: Ht 157.5 cm; Wt 64.1 kg
--- NOTE | ~2020-12-01 | EMS ---
[facility] [address] [place] [address] EMS Patient Care Report Name: JENNY AZEVEDO [id number] Admission: 12/01/20 Attend Phys: Discharge: Date of : 38 Report #: [id number] THIS REPORT FOR: //name// Report Transmitted: 12/01/2020 11:18 EMS Care Summary [facility] [place] Incident [id number] @ 12/01/2020 11:05 Incident Location [address] [place] [address], [place] [address] Patient Jenny Azevedo Female, 80 Years 1940 Patient Address [address] [place], [place] [id number] Patient History Chronic Obstructive Pulmonary Disease (COPD),Osteoporosis, Patient Allergies , Patient Medications Clopidogrel, Gabapentin, Singulair, Advair, Atenolol, Metformin, Chief Complaint Hip/pelvic pain Disposition Transported No Lights/[place] Dispatch Reason Falls Transported To [facility] Narrative Dispatched to address noted for a fall. [facility] en route and on scene at time noted. Arrived and found patient sitting in a chair in the parking lot of the building. Patient was walking with her walker and fell on her right side after slipping on the loose gravel. Patient reported that she did not lose [facility] [address] [place] [address] EMS Patient Care Report Name: JENNY AZEVEDO Room: [facility]#: [id number] Admission: 12/01/20 Attend Phys: Discharge: Date of : 38 Report #: [id number] consciousness or strike her head. Patient stated she had pain noted in right hip and right knee with no obvious trauma noted and CMS intact. Pain was only on movement. Patient stated she wanted to be transported to [facility] for care. patient was moved to stretcher via carry and she could not bear weight on that leg. ID cards with insurance cards and medication list was provided by family and left with the patient at [facility]. Once in ambulance, vitals where taken at time noted. No other trauma noted at this time. While en route, vitals where taken at time noted. No major change noted to patients condition. Pain continued with movement. Radio report was given at time noted. Arrived and took patient to intake room and then moved her to a wheel chair with the blanket under her. RN took verbal report and signed for patient care and patient signed for self. END report EMT-P Marcos Cornell Initial Vitals @11:12Pain: 09/12, @11:18Pain: 09/12, @11:16SpO2: 93, @11:18SpO2: 93, @11:21SpO2: 95, @11:22SpO2: 98, @11:26SpO2: 96, @11:28SpO2: 95, @11:18P: 82,R: 16,BP: 71/51,Revised Trauma: 6, @11:22P: 81,R: 16,BP: 107/63,Revised Trauma: 8, @11:28P: 80,R: 16,BP: 102/42,Revised Trauma: 8, @11:18GCS: 15, @:22GCS: 15, @:28GCS: 15, @11:12 Assessments @11:12MENTAL:SKIN:HEENT:LUNG SOUNDS:ABDOMEN:PELVIS//GI:EXTREMITIES:PULSE:NEURO: Impression Injury Procedures @11:18Oxygen Complications: ,Response: Unchanged Timeline 11:04,Call Received 11:04,Dispatch Notified 11:04,Psap Call 11:05,Dispatched 11:06,[place] [address] EMS Patient Care Report Name: DARBY AZEVEDOKaitna Zamorano Room: [facility]#: [id number] Admission: 12/01/20 Attend Phys: Discharge: Date of : 38 Report #: [id number] 11:10,On Scene 11:12,At Patient 11:12,BP: / M,PULSE: ,RR: R,SPO2: Ox,ETCO2: ,BG: ,PAIN: 5,GCS: , 11:12,BP: / M,PULSE: ,RR: R,SPO2: Ox,ETCO2: ,BG: ,PAIN: ,GCS: , 11:16,BP: / M,PULSE: ,RR: R,SPO2: 93 Ox,ETCO2: ,BG: ,PAIN: ,GCS: , 11:18,BP: / M,PULSE: ,RR: R,SPO2: 93 Ox,ETCO2: ,BG: ,PAIN: ,GCS: , 11:18,BP: 71/51 M,PULSE: 82,RR: 16 R,SPO2: Ox,ETCO2: ,BG: ,PAIN: ,GCS: , 11:18,BP: / M,PULSE: ,RR: R,SPO2: Ox,ETCO2: ,BG: ,PAIN: ,GCS: 15, 11:18,Depart Scene 11:18,Oxygen Complications: ,,Response: Unchanged 11:18,BP: / M,PULSE: ,RR: R,SPO2: Ox,ETCO2: ,BG: ,PAIN: 5,GCS: , 11:21,BP: / M,PULSE: ,RR: R,SPO2: 95 Ox,ETCO2: ,BG: ,PAIN: ,GCS: , 11:22,BP: / M,PULSE: ,RR: R,SPO2: 98 Ox,ETCO2: ,BG: ,PAIN: ,GCS: , 11:22,BP: 107/63 M,PULSE: 81,RR: 16 R,SPO2: Ox,ETCO2: ,BG: ,PAIN: ,GCS: , 11:22,BP: / M,PULSE: ,RR: R,SPO2: Ox,ETCO2: ,BG: ,PAIN: ,GCS: 15, 11:26,BP: / M,PULSE: ,RR: R,SPO2: 96 Ox,ETCO2: ,BG: ,PAIN: ,GCS: , 11:28,BP: / M,PULSE: ,RR: R,SPO2: 95 Ox,ETCO2: ,BG: ,PAIN: ,GCS: , 11:28,BP: 102/42 M,PULSE: 80,RR: 16 R,SPO2: Ox,ETCO2: ,BG: ,PAIN: ,GCS: , 11:28,BP: / M,PULSE: ,RR: R,SPO2: Ox,ETCO2: ,BG: ,PAIN: ,GCS: 15, 11:33,At Destination 11:41,Call Closed Disclaimer v1.1 Copyright 2020 [employer] This EMS Care Summary contains data elements from the applicable legal record (which may be displayed differently). It is designed to provide pertinent information for the following purposes: continuity of care, clinical quality, and state data reporting. The complete legal record is available to ED staff and administrators of the receiving hospital in [facility]'s Patient Tracker. All data is provided "as is."
[2020-12-01 11:38] VITALS: BP 104/68
[2020-12-01 13:33] LABS: ABSOLUTE BASOPHILS 0.1 thou/uL (0.0-0.2); ABSOLUTE EOSINOPHILS 0.5 thou/uL (0.0-0.7); ABSOLUTE LYMPHOCYTES 1.3 thou/uL (0.8-5.3); ABSOLUTE MONOCYTES 0.8 thou/uL (0.0-1.2); ABSOLUTE NEUTROPHILS 8.3 thou/uL (1.6-8.1); BASOPHILS 0.8 %; EOSINOPHILS 4.2 %; HEMATOCRIT 36.7 % (37.0-47.0); HEMOGLOBIN 12.3 gm/dL (12.0-15.0); LYMPHOCYTES 12.1 %; MCH 28.4 pg (26.0-34.0); MCHC 33.5 g/dL (28.0-37.0); MCV 84.7 fL (80.0-100.0); MONOCYTES 7.4 %; NUCLEATED RBCS 0 /100WBC; PLATELET COUNT* 346 thou/uL (150-400); POLYS 75.5 %; RBC 4.33 mil/uL (4.20-5.00); RDW-CV 15.9 % (10.5-14.5)
[2020-12-01 15:57] LABS: CALCIUM 8.5 mg/dL (8.5-10.1); CREATININE 0.6 mg/dL (0.6-1.3); POTASSIUM 3.8 mmol/L (3.5-5.1)
[2020-12-01 16:07] LABS: ALBUMIN 2.6 g/dL (3.4-5.0); TOTAL BILIRUBIN 0.2 mg/dL (<0.1-1.0); TOTAL PROTEIN 6.2 g/dL (6.4-8.2)
[2020-12-01 16:36] LABS: URINE BILIRUBIN NEGATIVE (Negative); URINE BLOOD NEGATIVE (Negative); URINE CLARITY CLEAR; URINE COLOR YELLOW; URINE GLUCOSE-RANDOM TRACE (Negative); URINE KETONES NEGATIVE (Negative); URINE LEUKOCYTES-REFLEX NEGATIVE (Negative); URINE NITRITE-REFLEX NEGATIVE (Negative); URINE PROTEIN NEGATIVE (Negative); URINE SPECIFIC GRAVITY 1.025 (1.005-1.030); URINE UROBILINOGEN 0.2 E.U./dl (0.2-1.0)
[2020-12-01 21:00] VITALS: BP 114/54
[2020-12-01 21:57] VITALS: BP 128/53
[2020-12-02 07:50] VITALS: BP 168/79
[2020-12-02 16:00] VITALS: BP 133/75
[2020-12-02 20:15] VITALS: BP 135/69
[2020-12-03 05:22] LABS: HEMATOCRIT 32.3 % (37.0-47.0); HEMOGLOBIN 10.9 gm/dL (12.0-15.0); MCH 28.1 pg (26.0-34.0); MCHC 33.8 g/dL (28.0-37.0); MCV 82.9 fL (80.0-100.0); MPV 8.2 fl. (7.2-11.1); RBC 3.9 mil/uL (4.20-5.00); RDW-CV 15.8 % (10.5-14.5); WBC 10.7 thou/uL (4.0-11.0)
[2020-12-03 05:44] LABS: CALCIUM 8.1 mg/dL (8.5-10.1); CREATININE 0.5 mg/dL (0.6-1.3); POTASSIUM 3.3 mmol/L (3.5-5.1)
--- NOTE | 2020-12-03 07:20 | CON ---
[facility] [address] [place] [address] CONSULTATION Name: LOKESHJENNY Room: [address] IN M.R.#: [id number] Admission: 12/01/20 Attend Phys: Susan Alcantara Discharge: Date of : 38 Report #: [id number] THIS REPORT FOR: cc: Austen Hernandez,Jeffrey Palmer II, DO ~ DATE OF CONSULTATION: 12/01/2020 CHIEF COMPLAINT: Right hip pain. HISTORY OF PRESENT ILLNESS: The patient is an 80-year-old female with history of ocular thromboembolism, osteoporosis and degenerative disk disease came to the Emergency Department after ambulance with sudden onset of the right knee and hip pain after a fall prior to arrival. They were leaving for a dentist appointment, walking considerable distance to the vehicle. The patient walks with a walker and states she could have slipped in the sand coming near the vehicle. She fell on her right side, injuring her knee, hip and shoulder. The patient denies any head trauma or loss of consciousness. The patient denies any headaches, lightheadedness, dizziness, or vision changes after the fall or prior to. At the Emergency Room, she did have pain in the right hip with rotation. It lasted throughout the entire visit and did get to a 10/10. Difficulty with any kind of movement. Rest does seem to relieve some of that. The patient denies any recent illness. Currently taking a blood thinner of Plavix and we are consulted for further evaluation. PAST MEDICAL HISTORY: Chronic obstructive pulmonary disease, asthma, prior broken ankle, dislocated elbow, and diabetes. She is on home O2. Currently daily smoker, DM 2, neuropathy, hypothyroidism, MDD, hypertension, chronic pain, CAD. HOME MEDICATIONS: Listed in the chart and ER physician documentation. ALLERGIES: STATED TO ASPIRIN, LATEX, PRIYANKA AND SULFA. FAMILY HISTORY: Noncontributory. SOCIAL HISTORY: The patient does smoke and drink alcohol. REVIEW OF SYSTEMS: CONSTITUTIONAL: The patient denies any fevers or chills or diaphoresis. EYES: The patient denies any eye pain or blurred vision. HENT: Denies any congestion or headache. RESPIRATORY: Denies any cough, shortness of breath. MUSCULOSKELETAL: The patient does have right leg pain [place] [address] CONSULTATION Name: LOKESHJENNY Room: [address] IN [facility]#: [id number] Admission: 12/01/20 Attend Phys: Susan Alcantara Discharge: Date of : 39 Report #: [id number] A 12-point review of systems is negative other than pertinent positives in the HPI and rest of the review of systems as above. PHYSICAL EXAMINATION: VITAL SIGNS: Pulse ox 100%, blood pressure 104/68, temperature 36.2, pulse 68, respirations 14. GENERAL: The patient is alert and oriented, cooperative with exam. Does have mild drowsiness from some of the pain medication. EYES: Conjunctivae normal lids. PERRLA, EOMI. HENT: Head is atraumatic. TMs clear bilaterally. Normocephalic. NECK: Supple, no masses, nontender. LUNGS: No respiratory distress. Normal air movement. No wheezes or rales. CARDIAC: Regular rhythm. No gallops or rubs. ABDOMEN: Soft, nontender, no HSM. BACK: The patient has no lumbar tenderness or thoracic tenderness. EXTREMITIES: The patient's right hip is flexed and internally rotated with pain range of motion secondary to previous fracture. Right knee is also flexed and associated with pain in the joint. Difficult to manipulate the knee due to pain in the hip. The patient's foot has full range of motion and strength. There is only minor numbness on the lateral side of the foot. Shoulders has full range of motion. NEUROLOGIC: Cranial nerves are normal as tested. SKIN: Normal color, no rash, warm and dry. Only minor bruising or ecchymosis. No significant lacerations. LABORATORY STUDIES: Chemistries: Sodium is 141, potassium 3.8, chloride of 107, glucose 169, which is high, AST of 18, ALT of 22, total protein 6.2 and albumin is 2.6. CBC: White blood cells 11.0, which is the high end of normal. Hemoglobin is 12.3, platelet count 346. Urine: The patient had a clean catch of negative for any ketones or blood, only trace glucose. IMAGING: The patient's right knee x-ray shows no evidence of fracture, dislocation or arthritis noted. The patient's x-ray of the right pelvis and right hip healed. Degenerative changes of the lumbar spine. A minimally impacted right intertrochanteric hip fracture prominent at the inferior portion of the right femoral neck on the AP projection. No left hip fracture and nondisplaced right hip fracture. IMPRESSION: 1. Right hip fracture, intertrochanteric nondisplaced at this time, but will need surgical intervention to maintain its stability. 2. Anticoagulation. 3. Hypertension, [place] [address] CONSULTATION Name: JENNY CAMPA Room: [address] IN [facility]#: [id number] Admission: 12/01/20 Attend Phys: Susan Alcantara Discharge: Date of : 39 Report #: [id number] PLAN: At this time was discussed with ER physician that due to Plavix we would like to hold this for 2 days prior to do any surgery and I would allow her to eat at this time. We will continue medical workup to make sure the patient is stable to undergo surgery. She may continue here until Saturday and would anticipate Saturday morning surgery as long as no significant bleeding is noted throughout any other portions of her body. We will plan to keep the patient n.p.o. on Saturday night with anticipated morning surgery on Saturday. The patient is to continue pain medications as necessary. Continue bed rest and catheter to be placed. I appreciate this consultation. <ELECTRONICALLY SIGNED> By: Jeffrey Ho II, DO 12/03/20719 1730 Jeffrey Ho II, DO /nt
[2020-12-03 11:57] VITALS: BP 125/66
[2020-12-03 13:39] LABS: HEMATOCRIT 33.1 % (37.0-47.0); HEMOGLOBIN 11.1 gm/dL (12.0-15.0)
[2020-12-03 16:29] VITALS: BP 103/48
[2020-12-03 19:35] VITALS: BP 124/68
[2020-12-04] VITALS: BP 104/62
[2020-12-04 03:50] VITALS: BP 99/45
[2020-12-04 04:55] LABS: HEMATOCRIT 26.7 % (37.0-47.0); HEMOGLOBIN 9.2 gm/dL (12.0-15.0); MCH 28.8 pg (26.0-34.0); MCHC 34.5 g/dL (28.0-37.0); MCV 83.4 fL (80.0-100.0); MPV 8.2 fl. (7.2-11.1); RBC 3.2 mil/uL (4.20-5.00); RDW-CV 15.6 % (10.5-14.5); WBC 10.1 thou/uL (4.0-11.0)
[2020-12-04 05:11] LABS: CREATININE 0.6 mg/dL (0.6-1.3)
[2020-12-04 05:14] LABS: POTASSIUM 4.4 mmol/L (3.5-5.1)
[2020-12-04 07:50] VITALS: BP 90/36
[2020-12-04 17:32] VITALS: BP 101/39
[2020-12-04 21:21] VITALS: BP 117/55
--- NOTE | 2020-12-05 07:14 | OP ---
[facility] [address] [place] [address] OPERATIVE REPORT Name: LOKESHJENNY Room: [address] IN .R.#: [id number] Admission: 12/01/20 Attend Phys: Susan Alcantara Discharge: Date of : 39 Report #: [id number] THIS REPORT FOR: cc: Austen Hernandez DO Mouse,Austen Shankar,Jeffrey Miranda II, DO ~ DATE OF SURGERY: 12/03/2020 PREOPERATIVE DIAGNOSIS: Right hip intertrochanteric fracture. POSTOPERATIVE DIAGNOSIS: Right hip intertrochanteric fracture. PROCEDURE PERFORMED: Right hip intramedullary nailing of intertrochanteric fracture. SURGEON: Jeffrey Ho II, DO BUHR DRESSER: None. ANESTHESIA: Per operative record. ESTIMATED BLOOD LOSS: 50 mL. ANTIBIOTICS: A 2 grams Ancef preoperatively. DRAINS: None. COMPLICATIONS: None. CONDITION: The patient stable to recovery room. IMPLANTS USED: [place] gamma nail with appropriate lag and locking screw. OPERATIVE PROCEDURE: The patient was taken to the operative suite, placed supine on the [place] table. The nonoperative leg was placed in lithotomy position all the way and the operative leg was placed on the [place] table and the fracture was closed reduced under C-arm fluoroscopy. The right hip was sterilely prepped and draped. Surgery began by proximal incision over the trochanter. This was carried down to subcutaneous tissues through the tensor fascia. The proximal point of the trochanter was found and the K-wire was placed in the intramedullary canal and visualized both the AP and lateral directions. The tissue sleeve was then utilized with a one-step reamer and reaming was performed of the proximal aspect of the femur. The short gamma nail was then utilized and placed on its financial economist, it was then placed down into the intramedullary canal and checked with both AP and lateral direction to be at appropriate depth. The guide pin was then placed up through the lag screw up [place] [address] OPERATIVE REPORT Name: JENNY CAMPA Room: [address] IN ..#: [id number] Admission: 12/01/20 Attend Phys: Susan Alcantara Discharge: Date of : 39 Report #: [id number] the inferior and center position of the femoral head. This was then measured and reamed to appropriate depth with the reamer and then the appropriate lag screw was placed. This was then compressed and a proximal antirotational screw was placed into the nail. The distal screw targeting guide was then applied. Small incision was made and this was taken down to the bone. Drill was then utilized through the static hole. This was then measured and appropriate length screw was then applied. Final images were taken. The financial economist handle was removed. Wound was then copiously irrigated. The tensor fascia was closed with a 1 Vicryl and subcuticular layer was closed with a 2-0 Vicryl. Proximal incision was closed with Monocryl. The incisions were closed with nylon. Dermabond, sterile dressings were applied. The patient was transferred to recovery room in stable condition. Counts correct x 2. <ELECTRONICALLY SIGNED> By: Jeffrey Ho II, DO 12/05/20 0714 [id number] 02Jeffrey Ho II, DO /nt
[2020-12-05 08:00] VITALS: BP 97/45
--- NOTE | 2020-12-05 09:52 | EKG ---
[place] [address] ELECTROCARDIOGRAM REPORT Name: JENNY CAMPA Room: [address] ADM IN M.R.#: [id number] Admission: 12/01/20 Attend Phys: Serafin Hester Discharge: Date of : 38 Date of Service: 12/02/20 1523 Report #: [id number] THIS REPORT FOR: //name// [facility] Test Date: 2020-12-02 Test Time: 15:23:35 Pat Name: JENNY CAMPA Department: Room: [address] Gender: F Database Reporting Consultant: RUBEN : 1940 Requested By: Christian Merida Order Number: [id number] Reading MD: Justino Daigle Measurements Intervals [place] Rate: 110 P: 81 NC: 155 QRS: 69 QRSD: 90 T: 53 QT: 349 QTc: 473 Interpretive Statements Sinus tachycardia artifact noted Minimal ST depression, anterolateral leads Compared to ECG 06/14/2020 21:44:39 rate has slowed Electronically Signed On 12-05-2020 9:52:39 CDT by Justino Daigle [email or web address] <ELECTRONICALLY SIGNED> By: Justino Daigle MD, FAC 12/05/20 0952 1523 1523 Justino Daigle MD, [facility] /EPI
[2020-12-05 16:50] VITALS: BP 150/53
[2020-12-05 23:00] VITALS: BP 105/58; BP 162/74
[2020-12-06 08:00] VITALS: BP 129/51
[2020-12-06] MEDS ORDERED: ELIQUIS2.5 MG PO (09:24)
[2020-12-06] MEDS ORDERED: TRAMADOL 50 MG50 MG PO (09:25)
[2020-12-06] MEDS ORDERED: NORCO5 PO (09:27)
[2020-12-06 09:28] VITALS: BP 129/51
== END 2020-12-06 11:06 | DRG 481 ==
LOC: M.ERS 11:36 → M.2W 16:19 → M.3W 16:19 → M.TBA-ER 16:19 → M.2W 21:25 → M.3W 12-02 06:39
PROVIDERS: Internal Medicine; Physician Assistant; ADMIT Internal Medicine; ATTEND Internal Medicine
PROC: 0QS606Z Reposition Right Upper Femur with Intramedullary Internal Fixation Device, Open Approach (ICD-10-PCS; principal; 2020-12-03)
DX: S72.144A Nondisplaced intertrochanteric fracture of right femur, initial encounter for closed fracture (principal); E44.0 Moderate protein-calorie malnutrition; D62 Acute posthemorrhagic anemia; I10 Essential (primary) hypertension; Z20.822 Contact with and (suspected) exposure to COVID-19; M81.0 Age-related osteoporosis without current pathological fracture; J44.9 Chronic obstructive pulmonary disease, unspecified; E11.40 Type 2 diabetes mellitus with diabetic neuropathy, unspecified; E03.9 Hypothyroidism, unspecified; F32.9 Major depressive disorder, single episode, unspecified; G89.29 Other chronic pain; I25.10 Atherosclerotic heart disease of native coronary artery without angina pectoris; M19.90 Unspecified osteoarthritis, unspecified site; E87.6 Hypokalemia; W01.0XXA Fall on same level from slipping, tripping and stumbling without subsequent striking against object, initial encounter; Z99.81 Dependence on supplemental oxygen; Z79.899 Other long term (current) drug therapy; Z88.8 Allergy status to other drugs, medicaments and biological substances; Z91.040 Latex allergy status; Z88.2 Allergy status to sulfonamides; Z91.018 Allergy to other foods; Z68.25 Body mass index [BMI] 25.0-25.9, adult; Y93.89 Activity, other specified; Y92.89 Other specified places as the place of occurrence of the external cause; Y99.8 Other external cause status

== ENCOUNTER 2020-12-05 16:31 | Inpatient (IN) | payer MEDICARE ==
[~2020-12-05] VITALS: Ht 154.9 cm; Wt 62.0 kg
[2020-12-06] MEDS ORDERED: ELIQUIS2.5 MG PO (09:24)
[2020-12-06] MEDS ORDERED: TRAMADOL 50 MG50 MG PO (09:25)
[2020-12-06] MEDS ORDERED: NORCO5 PO (09:27)
[2020-12-06 13:54] VITALS: BP 108/50
--- NOTE | 2020-12-06 14:34 | NUR ---
PATIENT ARRIVED TO ROOM ALERT AND ORIENTED X4. ORIENTED TO ROOM AND BED CONTROLS. ASSESSMENT DONE CHARTED. CALL LIGHT WITHIN REACH. UP IN CHAIR AND CHAIR ALARM ON.
[2020-12-06 19:00] VITALS: BP 139/66
--- NOTE | 2020-12-06 20:36 | NUR ---
PATIENT ORIENTED TO ROOM AND BED CONTROL. UP WITH 2 ASSIST GAIT BELT AND WALKER FOR PIVOT TRANSFER TO BED. REMAINS 50% WEIGHTBEARING TO RIGHT LOWER EXTREMITY.CALL LIGHT WITHIN REACH.
[2020-12-07 05:40] LABS: HEMATOCRIT 24.7 % (37.0-47.0); HEMOGLOBIN 8.5 gm/dL (12.0-15.0); MCH 28.8 pg (26.0-34.0); MCHC 34.5 g/dL (28.0-37.0); MCV 83.6 fL (80.0-100.0); MPV 7.8 fl. (7.2-11.1); RBC 2.96 mil/uL (4.20-5.00); RDW-CV 15.6 % (10.5-14.5); WBC 7.4 thou/uL (4.0-11.0)
[2020-12-07 05:44] LABS: CALCIUM 7.9 mg/dL (8.5-10.1); CREATININE 0.5 mg/dL (0.6-1.3); POTASSIUM 3.9 mmol/L (3.5-5.1)
--- NOTE | 2020-12-07 07:00 | NUR ---
ASSUMED PT CARE AT 1930. ASSESSMENT COMPLETED CHARTED. ABLE TO MAKE NEEDS KNOWN. [id number] COMPLETED CHARTED. RESTING IN BED ALL NIGHT. C/O HIP PAIN AND GAVE PRN PAIN MEDS PER EMAR. MANRIQUZE DRAINING YELLOW URINE WITHOUT ISSUES. WILL CONTINUE TO MONITOR.
[2020-12-07 09:00] VITALS: BP 123/59
--- NOTE | 2020-12-07 10:09 | NUR ---
INITIAL ASSESSMENT: PATIENT ADMITTED TO THE [facility] ON 12/06/20 WITH A DIAGNOSIS OF S/P INTRMEDULLARY NAILING. PT ALERT AND ORIENTED. PT NORALLY RESIDES AT HOME WITH HER DTR GIANCARLO AND SHE ASSIST THE PT WITH CARES NEEDED. PT USES A PLATFORM WALKER FOR MOBILITY AT HOME PRIOR TO ADMIT. PT ALSO USES A WHEELCHAIR AT HOME AND IN THE COMMUNITY. PT'S DTR AUGUST INFORMS THAT THEY ARE CURRENTLY WORKING ON PURCHASING A TRAANSPORT CHAIR FOR THE PT. PT IS CURRENTLY ON-SERVICE WITH , BUT AUGUST WAS UNABLE TO RE-CALL THE NAME. PT HAD RECENT D/C FROM SNF AT [facility] IN OCTOBER 2020. CM ORIENTED THE PT AND HER DTR AUGUST TO THE [facility] AND PROCESSES, RESIDENTS RIGHTS INFO, TEAM CONFRENCE, AND TO THE ROLE OF CM. CM WILL REMAIN AVAILABLE TO ASSIST AND FOLLOW NEEDED.
[2020-12-07 19:00] VITALS: BP 118/53
--- NOTE | 2020-12-07 19:02 | NUR ---
ALERT AND ORIENTED X4 WITH FORGETFULNESS. UP WITH MAX ASSIST 2 GAIT BELT AND WALKER FOR PIVOT TRANSFERS. MANRIQUEZ CATHETER D/C THIS AFTERNOON AWAITING FOR PATIENT TO VOID. USES PO PAIN MEDICATION TO HELP WITH RIGHT HIP PAIN. REMAINS 50 % WEIGHTBEARING TO RIGHT LEG. MOM GIVEN FOR CONSTIPATION. CALL LIGHT WITHIN REACH. FALL PRECAUTIONS IN PLACE.
--- NOTE | 2020-12-07 22:50 | NUR ---
ASSUMED CARE AT 1915. PATIENT RESTING IN BED. TAKES PILLS WHOLE WITH APPLESAUCE ONE AT A TIME. DRESSINGS TO RT HIP C/D/I. O2 2L/NC WHICH IS WHAT SHE WEARS AT HOME. INCONTINENT OF VERY SMALL AMOUNT, BUT USED BEDPAN FOR THE REST OF HER VOIDING. VERY RELUCTANT TO TURN, BUT ASSISTED WITH TURNS. MEDICATED FOR PAIN AT HS, SEE MAR. MOISTURE BARRIER APPLIED TO BOTTOM. HOURLY ROUNDS CONTINUE. BED ALARM ON. CALL LITE IN REACH.
--- NOTE | 2020-12-08 05:27 | NUR ---
SLEPT MOST OF THE NIGHT EXCEPT TO HAVE A LARGE BM PER BEDPAN ALONG WITH SOME URINE. HAS BEEN INCONTINENT OF URINE OTHERWISE, REQUIRING CHANGING OF PADS. SKIN CARE DONE, MOISTURE BARRIER APPLIED. RELUCTANT TO TURN, BUT DID ALLOW TURNS. DRESSING TO SACRUM C/D/I, O2 2L/NC CONTINUES. DSSG TO RT HIP C/D/I. HOURLY ROUNDS CONTINUE. BED ALARM ON. CALL LITE IN REACH.
--- NOTE | 2020-12-08 05:51 | NUR ---
PATIENT STATES AT HOME SHE SLEEPS IN THE RECLINER. SHE HAS A BSC NEARBY THAT HER DAUGHTER EMPTIES.
[2020-12-08 08:09] VITALS: BP 101/49
--- NOTE | 2020-12-08 13:29 | NUR ---
Nutrition: Pt admitted to rehab with hip FX. BG 123, alb 2.6, prealb 14.7. Wound on sacrum. Pt agreed to Luis for wound healing - RD will order. Pt was eating lunch at time of visit. She said her appetite is good. She said she usually weighs 145#. Current wt 150#. H/o COPD, DM, PN. Increased nutrient needs R/T wound healing AEB ulcer present. Luis BID, good hydration. Mild to low risk.
--- NOTE | 2020-12-08 16:19 | NUR ---
PT RESTING IN BED , UP WITH WALKER AND GAIT BELT, DAUGHTER BROUGHT PT'S WALKER STATED SHE WOULD GET UP BETTER BECAUSE IT'S TALLER AND DOES NOT HURT PT'S WRIST. PT HAS DRESSING TO RT HIP.DRESSING ON BOTTOM WAS CHANGED TODAY. PT ASKING FOR PAIN MEDS EVERY 4 HOURS FOR HIP PAIN. PT HAS CALL LIGHT IN REACH AND FALL PRECAUTIONS IN PLACE.
[2020-12-08 20:00] VITALS: BP 121/57
[2020-12-09 08:00] VITALS: BP 137/75
[2020-12-09 08:24] VITALS: BP 137/76
--- NOTE | 2020-12-09 12:30 | NUR ---
REBVIEWED CHARTING ON PATIENT BY ANALYSIS INTERN AND I AGREE WITH THE CHARTING.
--- NOTE | 2020-12-09 15:00 | NUR ---
THIS DATA POWER CONSULTANT IS IN AGREEMENT WITH DOCUMENTED TX NOTE BY NAHID RAYA FOR THIS DAY. NADEEN CHRISTIANSONT
--- NOTE | 2020-12-09 16:16 | NUR ---
CM SPOKE TO THE PT AND FAMILY TO PROVIDE UPDATE AOUT INPT ARU AND PROCESS AND ADDRESS ANY QUESTIONS OR CONCERNS. PT AND FAMILY HAD NO QUESTIONS OR CONCERNS AT THIS TIME. CM WILL REMAIN AVAILABLE TO ASSIST AND FOLLOW NEEDED.
--- NOTE | 2020-12-09 18:13 | NUR ---
PT IS SLOWLY PROGRESSING TOWARDS DC GOALS. PT WORKED WITH THERAPY AND EVEN GOT UP BETTER TODAY WITH THERAPY. VSS AFEBRILE. PT TAKES MEDS WITH APPLESAUCE. DAUGHTER HERE TO SEE MOM TODAY AND WENT AND BOUGHT HER SOME CLOTHES FROM [employer] THE DAUGHTER WAS VERY PLEASED WITH NEW OUTFITS. WILL CONTINUE TO MONITOR PLAN OF CARE.
[2020-12-09 20:00] VITALS: BP 134/60
[2020-12-09 20:35] VITALS: BP 142/80
--- NOTE | 2020-12-10 14:50 | NUR ---
PATIENT'S PAIN ALWAYS AT 7. DR. DELGADO ORDERED TO DC TRAMADOL AND ORDER FOR NORCO 5/325MG 1-2TABS EVERY 4-6 HOURS NEEDED FOR HIP PAIN.
--- NOTE | 2020-12-10 16:52 | NUR ---
PATIENT A&OX4. HAVING QUITE A BIT OF PAIN IN RIGHT HIP. ICE APPLIED AND NEW ORDERS FOR PAIN MEDICATION GIVEN. PATIENT WORKED WITH THERAPIES TODAY. UP WITH GAITBELT AND 2 ASSIST. PATIENT IS CONTINENT OF B/B AND TRANSFERS TO [facility] [place] [place]. HRR. LSCTA. 3L O2NC AT HOME AND HOSPITAL. PATIENT STATES SHE SLEEPS IN HER RECLINER AT HOME AND WANT TO SLEEP IN HER RECLINER HERE WELL. PATIENT TAKES HER PILLS IN APPLESAUCE. PT IN RECLINER WITH CHAIR ALARM ON, CALL LIGHT IN REACH.
[2020-12-10 19:54] VITALS: BP 104/42
--- NOTE | 2020-12-11 04:51 | NUR ---
ASSUMED PT CARE AT 1930, ALERT AND ORIENTED X4. PT SLEPT IN BED OVERNIGHT. UP TO BSC WITH ASSIST OF TWO, GAIT BELT AND WALKER TO VOID. PRN PAIN MEDICATION TWICE THIS SHIFT. ON 3L 02 PER NC. TAKES PILLS WHOLE IN APPLESAUCE. CALL LIGHT IN REACH, BED ALARM ON FOR SAFETY. HOURLY ROUNDING IN PROGRESS, WILL CONTINUE TO MONITOR.
[2020-12-11 08:00] VITALS: BP 106/52
[2020-12-11 10:15] LABS: URINE BILIRUBIN NEGATIVE (Negative); URINE BLOOD TRACE (Negative); URINE CLARITY CLEAR; URINE COLOR YELLOW; URINE GLUCOSE-RANDOM NEGATIVE (Negative); URINE KETONES NEGATIVE (Negative); URINE PROTEIN 1+ (Negative); URINE UROBILINOGEN 0.2 E.U./dl (0.2-1.0)
[2020-12-11 10:18] LABS: URINE LEUKOCYTES-REFLEX 3+ (Negative); URINE NITRITE-REFLEX POSITIVE (Negative)
[2020-12-11 10:30] LABS: SQUAMOUS 0-3 Few /LPF (0-3)
[2020-12-11 10:31] LABS: BACTERIA-REFLEX >30 Many /HPF (None Seen); CASTS None Seen /LPF (None Seen); CRYSTALS None Seen /LPF (None Seen); MUCUS 0-3 Light strn/LPF (None Seen); URINE RBC 0-2 Rare /HPF (0-2)
--- NOTE | 2020-12-11 13:14 | NUR ---
UA C&S RESULTS SENT TO DR. KAUR. PATIENT ALSO C/O RIGHT RIB PAIN, COUGHED UP BLOODY MUCOUS INTO TISSUE X1, EXPIRATORY WHEEZES. DR. KAUR ORDERED ANTIBIOTICS.
[2020-12-11 20:06] VITALS: BP 105/47
--- NOTE | 2020-12-12 04:28 | NUR ---
ASSUMED PT CARE AT 1930. ALERT AND ORIENTED X4. PT SLEPT IN BED OVERNIGHT. UP TO BSC WITH ASSIST OF TWO, GAIT BELT AND WALKER TO VOID. PRN PAIN MEDICATION TWICE THIS SHIFT. ON 2L 02 PER NC. TAKES PILLS WHOLE IN APPLESAUCE. CALL LIGHT IN REACH, BED ALARM ON FOR SAFETY. HOURLY ROUNDING IN PROGRESS, WILL CONTINUE TO MONITOR.
[2020-12-12 08:29] VITALS: BP 137/78
--- NOTE | 2020-12-12 16:37 | NUR ---
PT UP WITH WALKER AND MAX ASSIST X2. PT REPORTS PAIN NO LESS THAN 7 AFTER PRN PAIN MEDICAION GIVEN. PT REPOSITIONED. INCONTINENT OF STOOL X1. RAUL CARE AND CLOTHES CHANGED. WORKED WITH THERAPIES. O2 2L NC. CLEAR DRESSING TO R HIP WITH SMALL AMOUNT OR DRAINAGE PRESENT. TAKES PILLS IN APPLESAUCE. CALL LIGHT IN REACH. FALL PRECAUTIONS IN PLACE.
[2020-12-12 19:00] VITALS: BP 111/56
--- NOTE | 2020-12-13 04:31 | NUR ---
ASSUMED PT CARE AT 1930. PT ALERT AND ORIENTED 4, POLITE AND COOPERATIVE WITH CARES. PT UP TO BSC TO VOID X3 WITH MAX ASSIST OF TWO, GAIT BELT AND WALKER. PRN PAIN MEDICATION TWICE THIS SHIFT FOR RIGHT HIP PAIN. 2L 02 PER NC. DRESSING TO RIGHT HIP INTACT. TAKES PILLS ONE AT A TIME IN APPLESAUCE. CALL LIGHT IN REACH, BED ALARM ON FOR SAFETY. HOURLY ROUNDING IN PROGRESS, WILL CONTINUE TO MONITOR.
[2020-12-13 08:00] VITALS: BP 111/48
--- NOTE | 2020-12-13 16:19 | NUR ---
CM SPOKE TO THE PT AND HER DTR TO DISCUSS QUESTIONS OR CONCERNS THAT THEY MAY HAVE FOR THIS WEEKS TEAM CONFRENCE MEETING. PT HAS NO QUESTIONS OR CONCERNS AT THIS TIME. PT'S DTR INFORMS THAT SHE IS CONCERNED ABOUT THE PT'S PAIN AND PAIN MANAGEMENT AND HER PROGRESS WITH THERAPIES. CM WILL REMAIN AVAILABLE TO ASSIST AND FOLLOW NEEDED.
--- NOTE | 2020-12-13 16:49 | NUR ---
PATIENT COMPLETED THERAPIES THIS SHIFT ORDERED. UP WITH MAX ASSISTANCE, GAIT BELT AND WALKER. [address]. C/O RIGHT HIP AND RIB PAIN, PRN HYDROCODONE GIVEN X 2. SPOKE WITH DR. MCCLAIN REGARDING PATIENTS PAIN, LIDOCAINE PATCH ORDERED AND PLACED. VOIDING PER BSC, ATTEMPTED BM WAS UNSUCCESSFUL. ID CONS PLACED FOR EBSL IN URINE, PATIENT CURRENTLY ON PO LEVAQUIN. PLACED IN CONTACT ISOLATION PER PROTOCOL.
[2020-12-13 19:00] VITALS: BP 103/50
--- NOTE | 2020-12-13 23:35 | NUR ---
ASSUMED CARE AT 1920. PATIENT RESTING IN BED. DAUGHTER VISITED TODAY. TAKES PILLS WHOLE WITH APPLESAUCE ONE AT A TIME. DRESSINGS TO RT HIP C/D/I. O2 2L/NC WHICH IS WHAT SHE WEARS AT HOME. VERY SLOW TO MOVE, BUT ASSISTED WITH TURNS. VOIDED PER BSC, UP WITH TWO, GAIT BELT, STAND PIVOT. REQUIRES EXTRA TIME. MEDICATED FOR PAIN AT HS, SEE JUL. MOISTURE BARRIER APPLIED TO BOTTOM. HOURLY ROUNDS CONTINUE. BED ALARM ON. CALL LITE IN REACH.
--- NOTE | 2020-12-14 05:40 | NUR ---
SLEPT MOST OF SHIFT. AWAKENED BY LAB. UP TO VOID PER BSC, TAKES EXTRA TIME, NEEDS MUCH CUEING AND ENCOURAGEMENT. VOIDS GEMA URINE. WAS INCONTINENT IN BRIEF. SKIN CARE DONE, BRIEF CHANGED. ISOLATION CONTINUES. MEDICATED FOR RT KNEE AND HIP PAIN SEE JUL. HOURLY ROUNDS CONTINUE. BED ALARM ON. CALL LITE IN REACH.
[2020-12-14 05:41] LABS: HEMATOCRIT 27.9 % (37.0-47.0); HEMOGLOBIN 9.4 gm/dL (12.0-15.0); MCH 28.7 pg (26.0-34.0); MCHC 33.6 g/dL (28.0-37.0); MCV 85.6 fL (80.0-100.0); MPV 7.5 fl. (7.2-11.1); RBC 3.26 mil/uL (4.20-5.00)
[2020-12-14 05:57] LABS: CALCIUM 9.1 mg/dL (8.5-10.1); CREATININE 0.6 mg/dL (0.6-1.3); POTASSIUM 4.1 mmol/L (3.5-5.1)
[2020-12-14 07:50] VITALS: BP 100/49
--- NOTE | 2020-12-14 13:43 | NUR ---
Nutrition: follow up note. Pt eating 25-85% of meals. She stated her usual wt is 139#. She frinks Ensure at home and agreed to strawberry Ensure with lunches - RD will order. Continue at mild nutrition risk. RD will continue to follow pt weekly in team binder.
--- NOTE | 2020-12-14 18:06 | NUR ---
PATIENT COMPLETED THERAPIES THIS SHIFT ORDERED. UP WITH MAX ASSISTANCE, GAIT BELT AND WALKER. DR. MON HERE THIS AM TO SEE PATIENT, HERE WHEN XRAY BEING DONE AND DID LOOK AT RESULTS. PER DR. DELGADO CT OF LEG THIS EVENING FOR KNEE PAIN. VOIDING PER BSC, MOM GIVEN THIS AM AND BM NOTED TODAY. REMAINS ON 02 2L. PRN HYDROCODONE GIVEN FOR HIP AND RIB PAIN. TEAM MEETING TODAY, RETEAM.
[2020-12-14 20:00] VITALS: BP 136/58
--- NOTE | 2020-12-15 04:29 | NUR ---
ASSUMED PT CARE AT 1930. PT ALERT AND ORIENTED X4, POLITE AND COOPERATIVE WITH CARES. TAKES PILLS WHOLE WITH APPLESAUCE. DRESSINGS TO RIGHT HIP C/D/I. ON 2L 02, ALSO WEARS 2L AT HOME. UP TO BSC TO VOID WITH ASSIST OF TWO, GAIT BELT, STAND PIVOT. PRN PAIN MEDICATION PER PT REQUEST FOR RT HIP AND KNEE PAIN. MELATONIN AT HS PER PT REQUEST. ISOLATION CONTINUES. INCONTINENT IN BRIEF, PERICARE PROVIDED. CALL LIGHT IN REACH, BED ALARM ON FOR SAFETY. HOURLY ROUNDING IN PROGRESS, WILL CONTINUE TO MONITOR.
[2020-12-15 20:38] VITALS: BP 125/68
--- NOTE | 2020-12-16 04:58 | NUR ---
ASSUMED PT CARE AT 1930. PT ALERT AND ORIENTED X4, POLITE AND COOPERATIVE WITH CARES. TAKES PILLS WHOLE IN APPLESAUCE. DRESSINGS TO RIGHT HIP INTACT. ON 2L 02 PER NC, ALSO WEARS 2L AT HOME. UP TO BSC TO VOID WITH ASSIST OF TWO, GAIT BELT, STAND PIVOT. PRN PAIN MEDICATION PER PT REQUEST FOR RT HIP AND KNEE PAIN. ISOLATION CONTINUES. CALL LIGHT IN REACH, BED ALARM ON FOR SAFETY. HOURLY ROUNDING IN PROGRESS, WILL CONTINUE TO MONITOR.
[2020-12-16 08:01] VITALS: BP 100/47
--- NOTE | 2020-12-16 17:16 | NUR ---
PT UP WITH ASSIST X1 TO 2 WITH WALKER AND GAIT BELT. WORKED WITH THERAPIES. O2 2LNC. CONTACT ISOLATION FOR ESBL IN HER URINE. 50% WT BEARING TO RLE. TAKES PILLS IN APPLESAUCE. DAUGHTER BROUGHT IN A KNEE BRACE PER DR DELGADO'S REQUEST FOR R KNEE. CALL LIGHT IN REACH. FALL PRECAUTIONS IN PLACE.
[2020-12-16 20:00] VITALS: BP 137/50
--- NOTE | 2020-12-17 00:21 | NUR ---
ASSUMED CARE AT 1920. PATIENT RESTING IN BED. TAKES PILLS WHOLE WITH APPLESAUCE. ASSISTED WITH TURNS. DRESSINGS D/I TO HIP. UP WITH TWO FOR SAFETY, GAIT BELT, WALKER TO BSC. 50% WB TO RLE. NEEDS CUEING AND REASSURANCE, BUT IS IMPROVING. RT KNEE BRACE REMOVED AT HS. SKIN INTACT. O2 2L/NC. LIDOCAINE CREAM APPLIED TO RIGHT RIB AREA. NO C/O PAIN. HOURLY ROUNDS CONTINUE. BED ALARM ON. CALL LITE IN REACH.
--- NOTE | 2020-12-17 06:04 | NUR ---
SLEPT MOST OF THE NIGHT EXCEPT TO VOID. GETTING BETTER WITH TRANSFERS, BUT STILL LIFTING ASSIST UPON FIRST RISING FROM SITTING TO STAND. VOIDED GEMA URINE, SKIN CARE DONE. NEEDS HELP GETTING LEGS INTO AND OUT OF BED. DRESSING D/I. NO C/O PAIN. HOURLY ROUNDS CONTINUE. BED ALARM ON. CALL LITE IN REACH.
[2020-12-17 08:00] VITALS: BP 96/39
--- NOTE | 2020-12-17 17:10 | NUR ---
PT UP WITH 1 TO 2 ASSIST GAIT BELT AND WALKER. PRN PAIN MEDICATION GIVEN PER PT REQUESTS. DAUGHTER HERE TO VISIT. CALL LIGHT IN REACH. FALL PRECAUTIONS IN PLACE.
[2020-12-17 19:00] VITALS: BP 119/61
--- NOTE | 2020-12-18 05:45 | NUR ---
ASSUMED CARE AT 1920. ALERT AND ORIENTED. PLEASANT. NORCO GIVEN FOR RIGHT LEG/KNEE PAIN. PILLS WHOLE WITH APPLESAUCE. ISOLATION FOR ESBL. 02 2L NC. DRSG TO RIGHT HIP INTACT. 1-2 PERSON ASSIST. UP TO BSC. NEEDS BOOST ASSIST. SLEPT OFF AND ON. CALL LIGHT IN REACH AND BED ALARM ON.
[2020-12-18 07:09] VITALS: BP 105/49
--- NOTE | 2020-12-18 17:07 | NUR ---
PT UP WITH WALKER, GAIT BELT, AND ASSIST X2. PRN PAIN MEDICATION GIVEN PER PT REQUESTS. SUTURES REMOVED FROM R THIGH PER DR MON'S ORDER. PILLS WHOLE IN APPLESAUCE. 50% WT BEARING TO RLE. CONTACT ISOLATION FOR ESBL IN HER URINE. O2 2LNC. DAUGHTER HERE TO VISIT TODAY. CALL LIGHT IN REACH. FALL PRECAUTIONS IN PLACE.
[2020-12-18 20:00] VITALS: BP 118/67
[2020-12-19] VITALS (7 sets, daily range): BP systolic 82–134; BP diastolic 33–68
--- NOTE | 2020-12-19 05:40 | NUR ---
ASSUMED CARE AT 1920. ALERT AND ORIENTED. PLEASANT. NORCO GIVEN FOR RIGHT LEG AND KNEE PAIN. O2 2L NC. PILLS WITH APPLESAUCE. INCISIONS TO RIGHT LEG ARE HEALING AND NAOMI. MOD ASSIST WITH GAIT BELT. UP TO BSC SEVERAL TIMES. DRSG PLACED TO SACRUM AND LEFT BUTTOCK. PT PREFERS NOT TO LAY ONTO SIDES DUE TO INCREASED PAIN. SLEPT OFF AND ON. CALL LIGHT IN REACH AND BED ALARM ON.
--- NOTE | 2020-12-19 17:02 | NUR ---
ALERT AND ORIENTED X4 WITH PERIODS OF FORGETFULNESS. UP WITH 1-2 ASSIST, PLATFORM WALKER AND GAIT BELT. USES PO PAIN MEDICATION FOR RIGHT LEG PAIN. REMAINS ON O2 AT 2L/NC TO KEEP O2 SATS IN 90'S. REMAINS 50% WEIGHTBEARING TO RIGHT LOWER EXTREMITY. RIGHT HIP INCISION HEALING AND OPEN TO AIR. USES CALL LIGHT. FALL PRECAUTIONS IN PLACE.
--- NOTE | 2020-12-19 17:07 | NUR ---
DR NOTIFIED OF LOW B/P THIS AM AND ORTHOSTATIC B/P'S THIS AFTERNOON. NO NEW ORDERS YET AT THIS TIME.
--- NOTE | 2020-12-20 05:13 | NUR ---
ASSUMED CARE AT 1920. ALERT AND ORIENTED. PLEASANT. 50% WT BEARING TO RLE. NORCO GIVEN FOR RIGHT LEG PAIN. O2 2L NC. PILLS WITH APPLESAUCE. PT DENIED ANY FURTHER DIZZINESS. ORTHOSTATIC BP OBTAINED AND CHARTED. DRSG TO SACRUM INTACT. RIGHT LEG INCISIONS GROUNDMAN/LINEMAN. MOD ASSIST WITH GAIT BELT AND WALKER. UP TO BSC SEVERAL TIMES OVERNIGHT. SLEPT LITTLE OFF AND ON. CALL LIGHT IN REACH AND BED ALARM ON.
[2020-12-20 07:43] VITALS: BP 111/48
--- NOTE | 2020-12-20 17:30 | NUR ---
PT WORKED WITH THERAPIES. UP WITH WALKER, GAIT BELT, AND ASSIST X1. PRN PAIN MEDICATION GIVEN PER PT REQUESTS. CONTACT ISOLATION IN PLACE FOR ESBL OF THE URINE. TAKES PILLS IN APPLESAUCE. NO C/O DIZZINESS. VSS. CALL LIGHT IN REACH. FALL PRECAUTIONS IN PLACE.
[2020-12-20 19:00] VITALS: BP 114/61
--- NOTE | 2020-12-21 05:03 | NUR ---
ASSUMED PT CARE AT 1930. PT ALERT AND ORIENTED X4, POLITE AND COOPERATIVE WITH CARES. PT TAKES PILLS WHOLE IN APPLESAUCE. 50% WEIGHT BEARING TO RLE. NORCO GIVEN FOR RIGHT LEG PAIN. ON 2L 02 PER . DRESSING TO SACRUM INTACT. 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 UP WITH MOD ASSIST, GAIT BELT AND WALKER TO [facility] [place]. SLEPT OFF AND ON. CALL LIGHT IN REACH, BED ALARM ON FOR SAFETY. HOURLY ROUNDING IN PROGRESS, WILL CONTINUE TO MONITOR.
[2020-12-21 05:11] LABS: CALCIUM 8.7 mg/dL (8.5-10.1); CREATININE 0.5 mg/dL (0.6-1.3)
[2020-12-21 05:26] LABS: HEMATOCRIT 30.4 % (37.0-47.0); HEMOGLOBIN 9.8 gm/dL (12.0-15.0); MCH 28.1 pg (26.0-34.0); MCHC 32.4 g/dL (28.0-37.0); MCV 86.9 fL (80.0-100.0); RBC 3.5 mil/uL (4.20-5.00); RDW-CV 17.9 % (10.5-14.5); WBC 6.8 thou/uL (4.0-11.0)
[2020-12-21 07:46] VITALS: BP 130/55
--- NOTE | 2020-12-21 15:51 | NUR ---
PT UP WITH GAIT BELT AND WALKER, PT COMPLETED ALL THERAPIES TODAY, DID HAVE PAIN AT 8:22 AM AND 14:45 PM PAIN MEDS WERE GIVEN AND PAIN WAS RESOLVED. PT IS UP WITH 1 ASST. WITH WALKER.PT ON 2L 02. DAUGHTER AT BED SIDE.CALL LIGHT IN REACH AND FALL PRECAUTIONS IN PLACE.
--- NOTE | 2020-12-21 17:21 | NUR ---
TEAM [employer]ENCE MEETING HELD TODAY. CM AND PHYSICIAN INFORMED PT AND DTR OF MEETING AND PLAN TO RE-TEAM AND D/C PT HOME NEXT SATURDAY WITH HH. PT AND DTR IN AGREEMENT. PT'S DTR REQUEST HH WITH [facility]. PT'S DTR ALSO REQUEST FAMILY TRAINING SATURDAY (12/27/20) @ 1300. CM WILL REMAIN AVAILABLE TO ASSIST AND FOLLOW NEEDED.
[2020-12-21 19:00] VITALS: BP 104/44
--- NOTE | 2020-12-22 04:28 | NUR ---
ASSUMED PT CARE AT 1930. PT ALERT AND ORIENTED X4, POLITE AND COOPERATIVE WITH CARES. PT UP WITH ASSIST OF ONE, GAIT BELT AND WALKER TO VOID. PRN PAIN MEDICATION X1 FOR RIGHT LEG/HIP PAIN. PT SLEPT WELL OVERNIGHT. CALL LIGHT IN REACH, BED ALARM ON FOR SAFETY. HOURLY ROUNDING IN PROGRESS, WILL CONTINUE TO MONITOR.
[2020-12-22 08:16] VITALS: BP 102/60
--- NOTE | 2020-12-22 16:37 | NUR ---
PT UP WITH GAIT BELT AND WALKER. 1 ASST. PT COMPLETED ALL THERAPY. PT HAD BM . PT DID COMPLAIN OF PAIN AT 9:00 FROM RT HIP. WAS RESOLVED WITH MEDS. DAUGHTER AT BEDSIDE, AND PT IS RESTING WITH CALL LIGHT IN REACH AND FALL PRECAUTIONS IN PLACE.
[2020-12-22 20:05] VITALS: BP 103/53
--- NOTE | 2020-12-23 01:13 | NUR ---
ASSUMED CARE AT 1920. PATIENT RESTING IN BED. TAKES PILLS WHOLE WITH APPLESAUCE. ASSISTED WITH TURNS. HIP NAOMI. UP WITH MOD ASSIST, GAIT BELT, WALKER TO BSC. 50% WB TO RLE. SKIN INTACT. O2 2L/NC. NO C/O PAIN, BUT MEDICATED AT THE VERY END OF PREVIOUS SHIFT. HOURLY ROUNDS CONTINUE. BED ALARM ON. CALL LITE IN REACH.
--- NOTE | 2020-12-23 05:47 | NUR ---
SLEPT MUCH OF THE NIGHT EXCEPT WHEN UP TO VOID. VOIDED PER BSC THREE TIMES. O2 2L/NC CONTINUES. NO C/O PAIN. HOURLY ROUNDS CONTINUE. BED ALARM ON. CALL LITE IN REACH.
[2020-12-23 08:18] VITALS: BP 123/48
--- NOTE | 2020-12-23 17:17 | NUR ---
Pt worked with therapies. Up with gait belt, walker, and assist x1. Prn pain medication given per pt request. Daughter here to visit. Call light in reach. Fall precautions in place.
[2020-12-23 19:55] VITALS: BP 136/66
[2020-12-24 07:50] VITALS: BP 97/40
--- NOTE | 2020-12-24 17:00 | NUR ---
PT UP WITH GAIT BELT AND WALKER. PT'S DAUGHTER AT BEDSIDE. NO COMPLAINTS OF PAIN THIS SHIFT. CALL LIGHT IN REACH AND FALL PRECAUTIONS IN PLACE.
[2020-12-24 20:04] VITALS: BP 99/48
--- NOTE | 2020-12-25 04:38 | NUR ---
ASSUMED PT CARE AT 1930. PT ALERT AND ORIENTED X4, POLITE AND COOPERATIVE WITH CARES. TAKES PILLS WHOLE IN APPLESAUCE A FEW AT A TIME. PRN PAIN MEDICATION TWICE THIS SHIFT. PT UP SEVERAL TIMES TO BSC TO VOID. PERICARE PROVIDED. CALL LIGHT IN REACH, BED ALARM ON FOR SAFETY. HOURLY ROUNDING IN PROGRESS, WILL CONTINUE TO MONITOR.
[2020-12-25 07:43] VITALS: BP 147/62
--- NOTE | 2020-12-25 14:19 | NUR ---
PT UP WITH GAIT BELT AND WALKER AND X1 ASST. PT RESTING WITH DAUGHTER AT BEDSIDE. PT DID TAKE PAIN MED AT 09:30 . PT ALSO REQUESTED MILK OF MAG FOR CONSTIPATION AT 1400. PT ON 2L 02 . PT HAS CALL LIGHT IN REACH AND FALL PRECAUTIONS IN PLACE.
[2020-12-25 20:03] VITALS: BP 111/50
--- NOTE | 2020-12-26 05:07 | NUR ---
ASSUMED PT CARE AT 1930. PT ALERT AND ORIENTED X4, POLITE AND COOPERATIVE WITH CARES. TAKES PILLS A FEW AT A TIME IN APPLESAUCE. UP WITH ASSIST OF ONE, GAIT BELT AND WALKER. LARGE STOOL X1. VOIDED SEVERAL TIMES PER BEDSIDE COMMODE. PRN PAIN MEDICATION ONCE THIS SHIFT. ON 2L 02 PER NC. CALL LIGHT IN REACH, BED ALARM ON FOR SAFETY. HOURLY ROUNDING IN PROGRESS, WILL CONTINUE TO MONITOR.
[2020-12-26 08:30] VITALS: BP 136/80
--- NOTE | 2020-12-26 15:37 | NUR ---
CM FAXED REFERRAL TO [facility] AT [phone]. ORDERS WILL NEED TO BE FAXED AT [place].
--- NOTE | 2020-12-26 17:06 | NUR ---
ALERT AND ORIENTED X4. UP WITH 1 ASSIST, PLATFORM WALKER AND GAIT BELT. TAKES PILLS WITH APPLESAUCE. USES PO PAIN MEDICATION TO HELP WITH RIGHT HIP PAIN. REMAINS ON O2 AT 2L/NC TO KEEP O2 SATS IN 90'S. CONTINENT OF URINE TODAY, USES TOILET. USES CALL LIGHT FOR ASSIST. FALL PRECAUTIONS IN PLACE.
[2020-12-26 19:00] VITALS: BP 97/47
--- NOTE | 2020-12-27 04:54 | NUR ---
ASSUMED PT CARE AT 1930. PT ALERT AND ORIENTED X4, POLITE AND COOPERATIVE WITH CARES. ALREADY IN BED AT SHIFT CHANGE. TAKES PILLS WHOLE IN APPLESAUCE A FEW AT A TIME. ON 2L 02 PER NC. NO STOOL THIS SHIFT. UP WITH ASSIST OF ONE, GAITBELT AND WALKER TO VOID SEVERAL TIMES OVERNIGHT. PRN PAIN MEDICATION X1 THIS SHIFT FOR LEFT HIP PAIN. CALL LIGHT IN REACH, BED ALARM ON FOR SAFETY. HOURLY ROUNDING IN PROGRESS, WILL CONTINUE TO MONITOR.
[2020-12-27 08:27] VITALS: BP 102/48
--- NOTE | 2020-12-27 09:25 | NUR ---
cm faxed referral to [facility] yesterday. per bony, [facility] is accepting of pt back [facility]. d/c orders will need to be faxed [phone].
--- NOTE | 2020-12-27 18:09 | NUR ---
PT WORKED WITH THERAPIES. FAMILY TEACHING COMPLETED BY THERAPY. UP WITH WALKER, GAIT BELT, AND ASSIST X1. PRN PAIN MEDICATION GIVEN PER PT REQUEST. O2 2LNC. CALL LIGHT IN REACH. FALL PRECAUTIONS IN PLACE.
[2020-12-27 19:00] VITALS: BP 96/56
--- NOTE | 2020-12-27 20:05 | NUR ---
SITTING UP IN CHAIR. 02 NASAL CANNULA AT TWO LITERS. TRANSFERRED FROM CHAIR TO BED WITH GAITBELT, STAND, PIVOT. SHORTNESS OF BREATH NOTED WITH EXERTION. CALL LIGHT WITHIN REACH. TOOK MEDICATION WHOLE WITH APPLESAUCE.
[2020-12-28 04:38] LABS: HEMATOCRIT 35.1 % (37.0-47.0); MCH 27.9 pg (26.0-34.0); MCHC 31.5 g/dL (28.0-37.0); MCV 88.8 fL (80.0-100.0); MPV 8.3 fl. (7.2-11.1); RBC 3.95 mil/uL (4.20-5.00); RDW-CV 18.7 % (10.5-14.5); WBC 6.7 thou/uL (4.0-11.0)
--- NOTE | 2020-12-28 04:48 | NUR ---
HAD A PRN BREATHING TREATMENT AT THE BEGINNING OF THE SHIFT WITH GOOD RESULTS. RESTED QUIETLY. UP X ONE AT ABOUT 0345 TO THE BATHROOM TO VOID. PAIN MEDICATION GIVEN AT 0354 FOR COMPLAINT OF RIGHT KNEE RIGHT HIP AND RIGHT RIB PAIN WITH RELIEF. HOURLY ROUNDING IN PROGRESS.
[2020-12-28 05:14] LABS: CREATININE 0.6 mg/dL (0.6-1.3); POTASSIUM 3.9 mmol/L (3.5-5.1)
[2020-12-28 07:40] VITALS: BP 121/62
[2020-12-28 12:58] VITALS: BP 121/62
[2020-12-28] MEDS ORDERED: NORCO5 PO (15:07)
--- NOTE | 2020-12-28 15:29 | NUR ---
PT DISCHARGED HOME WITH HOME HEALTH. COPY OF DISCHARGE PAPERWORK TO PT AND HER DAUGHTER WITH EXPLAINATION. BOTH VERBALIZED UNDERSTANDING. PAIN MEDICATION CALLED TO PHARMACY BY DR DELGADO.
--- NOTE | 2020-12-28 15:50 | NUR ---
Case and plan of care reviewed with MD each weekday during patient's length of stay. Plan is for discharge today. [facility] arranged and pt was accepted per [place] 12/27/20. Will fax discharge orders when completed by
--- NOTE | 2020-12-29 14:47 | NUR ---
CM CONFIRMED WITH GRETEL WITH [facility] DC ORDERS WERE RECEIVED
== END 2020-12-28 15:32 | disposition home health service (06) | DRG 536 ==
LOC: M.REH 16:31
PROVIDERS: Family Medicine; Internal Medicine; ADMIT Physical Medicine & Rehabilitation; ATTEND Physical Medicine & Rehabilitation
DX: S72.141A Displaced intertrochanteric fracture of right femur, initial encounter for closed fracture (principal); J96.10 Chronic respiratory failure, unspecified whether with hypoxia or hypercapnia; N39.0 Urinary tract infection, site not specified; I10 Essential (primary) hypertension; E03.9 Hypothyroidism, unspecified; R53.81 Other malaise; J44.9 Chronic obstructive pulmonary disease, unspecified; J45.909 Unspecified asthma, uncomplicated; I25.10 Atherosclerotic heart disease of native coronary artery without angina pectoris; B96.4 Proteus (mirabilis) (morganii) as the cause of diseases classified elsewhere; D64.9 Anemia, unspecified; E87.6 Hypokalemia; F32.9 Major depressive disorder, single episode, unspecified; E11.40 Type 2 diabetes mellitus with diabetic neuropathy, unspecified; G89.29 Other chronic pain; W18.39XA Other fall on same level, initial encounter; Y93.89 Activity, other specified; Y92.89 Other specified places as the place of occurrence of the external cause; Y99.8 Other external cause status; Z86.19 Personal history of other infectious and parasitic diseases; Z88.2 Allergy status to sulfonamides; Z88.8 Allergy status to other drugs, medicaments and biological substances; Z91.040 Latex allergy status; Z87.891 Personal history of nicotine dependence

== ENCOUNTER → 2021-01-18 | Outpatient (CLI) | payer MEDICARE ==
[~2021-01-18] MED LIST changes: +ELIQUIS2.5 MG PO; +NORCO5 PO
== END ==
LOC: M.RAD 16:02
PROVIDERS: ATTEND Orthopaedic Surgery
DX: S72.001A Fracture of unspecified part of neck of right femur, initial encounter for closed fracture (principal); M25.561 Pain in right knee; X58.XXXA Exposure to other specified factors, initial encounter; Y93.89 Activity, other specified; Y92.89 Other specified places as the place of occurrence of the external cause; Y99.8 Other external cause status

== ENCOUNTER 2021-03-26 07:55 | Inpatient (IN) | payer MEDICARE ==
[~2021-03-26] VITALS: Ht 154.9 cm; Wt 63.0 kg
--- NOTE | ~2021-03-26 | EMS ---
[address] [address] EMS Patient Care Report Name: JENNY CAMPA [id number] Admission: 03/26/21 Attend Phys: Discharge: Date of : 38 Report #: [id number] THIS REPORT FOR: //name// Report Transmitted: 03/26/2021 08:07 EMS Care Summary [facility] Incident [id number] @ 03/26/2021 06:46 Incident Location [address] [place] [address] Patient LUCHO CAMPA Female, 80 Years 1940 Patient Address [address] [place] [id number] Patient History Chronic Obstructive Pulmonary Disease (COPD),Diabetes,Hypertension (HTN),Hip Fracture, Patient Allergies Aspirin,Sulfa, Patient Medications Metformin, Chief Complaint sacral pain Disposition Transported No Lights/[place] Reason Falls Transported To [facility] Narrative Dispatched to a residence for 80y/o female who fell and has hip pain. Upon arrival pt. was A&O and sitting in a chair holding herself off of the chair with her hands. Pt. stated that she fell from standing and landed with her butt [address] [place] [address] EMS Patient Care Report Name: JENNY CAMPA Room: [facility] [place]#: [id number] Admission: 03/26/21 Attend Phys: Discharge: Date of : 38 Report #: [id number] on the kitchen floor. Pt. denies hitting her head and LOC. Pt. had hip surgery this year and is concerned about that. Pt. c/o sacral pain with movement and sitting. Pelvis felt stable. No other injuries were noted. A pillow was placed on the cot for pt. to sit on. Pt. stated her pain was minimal while on the cot. IV was started. VS were stable. Pt. was transported to [place] for emergency services. Initial Vitals @07:45P: 73,R: 18,BP: 109/70,Pain: 0/10,GCS: 15,SpO2: 97,Revised Trauma: 12, @07:30P: 85,R: 18,BP: 110/52,GCS: 15,SpO2: 95,Revised Trauma: 12, @07:49P: 81,BP: 136/108,SpO2: 96, @07:43P: 85,SpO2: 98, @07:15P: 64,R: 18,BP: 116/84,Pain: 0/10,GCS: 15,Glucose: 140,SpO2: 96,Revised Trauma: 12, @07:08P: 90,R: 18,BP: 140/80,Pain: 10/10,GCS: 15,SpO2: 94,Revised Trauma: 12, Impression Injury Procedures @07:20 IV Therapy - Saline Lock 20cc (20 ga) Site: Forearm-Left Response: UnchangedSucceeded Timeline 06:44,Call Received 06:46,Dispatched 06:51,En Route 07:03,Initial Responder On Scene 07:03,On Scene 07:05,At Patient 07:08,BP: 140/80 M,PULSE: 90,RR: 18 R,SPO2: 94 Ox,ETCO2: ,BG: ,PAIN: 10,GCS: 15, 07:15,BP: 116/84 M,PULSE: 64,RR: 18 R,SPO2: 96 Ox,ETCO2: ,B,PAIN: 0,GCS: 15, 07:20,IV Therapy - Saline Lock 20cc 20 ga Site: Forearm-Left,Response: UnchangedSucceeded, 07:22,Depart Scene 07:30,BP: 110/52 M,PULSE: 85,RR: 18 R,SPO2: 95 Ox,ETCO2: ,BG: ,PAIN: ,GCS: 15, 07:43,BP: / M,PULSE: 85,RR: R,SPO2: 98 Ox,ETCO2: ,BG: ,PAIN: ,GCS: , 07:45,BP: 109/70 M,PULSE: 73,RR: 18 R,SPO2: 97 Ox,ETCO2: ,BG: ,PAIN: 0,GCS: 15, 07:49,BP: 136/108 M,PULSE: 81,RR: R,SPO2: 96 Ox,ETCO2: ,BG: ,PAIN: ,GCS: , 07:52,At Destination 07:54,Transfer Patient 08:05,[place] [address] EMS Patient Care Report Name: JENNY CAMPA [facility] [id number] Admission: 03/26/21 Attend Phys: Discharge: Date of : 38 Report #: [id number] 08:19,In District Disclaimer v1.1 Copyright 202 [employer] This EMS Care Summary contains data elements from the applicable legal record (which may be displayed differently). It is designed to provide pertinent information for the following purposes: continuity of care, clinical quality, and state data reporting. The complete legal record is available to ED staff and administrators of the receiving hospital in [employer]'s Patient Tracker. All data is provided "as is."
[2021-03-26 07:57] VITALS: BP 100/82
[2021-03-26] MEDS ORDERED: KLOR-CON M2020 MEQ PO (08:11)
[2021-03-26] MEDS ORDERED: MAGNESIUM400 MG PO (08:11)
[2021-03-26] MEDS ORDERED: TRELEGY ELLIPT1 EACH (08:12)
[2021-03-26 10:22] LABS: ABSOLUTE BASOPHILS 0.1 thou/uL (0.0-0.2); ABSOLUTE EOSINOPHILS 0.3 thou/uL (0.0-0.7); ABSOLUTE LYMPHOCYTES 2.1 thou/uL (0.8-5.3); ABSOLUTE MONOCYTES 0.9 thou/uL (0.0-1.2); ABSOLUTE NEUTROPHILS 12.2 thou/uL (1.6-8.1); BASOPHILS 0.5 %; HEMATOCRIT 39.1 % (37.0-47.0); HEMOGLOBIN 12.8 gm/dL (12.0-15.0); LYMPHOCYTES 13.5 %; MCH 29.1 pg (26.0-34.0); MCHC 32.7 g/dL (28.0-37.0); MPV 8.4 fl. (7.2-11.1); NUCLEATED RBCS 0 /100WBC; PLATELET COUNT* 213 thou/uL (150-400); RBC 4.39 mil/uL (4.20-5.00); RDW-CV 16.5 % (10.5-14.5); WBC 15.7 thou/uL (4.0-11.0)
[2021-03-26 10:27] LABS: CALCIUM 9.6 mg/dL (8.5-10.1); CREATININE 0.6 mg/dL (0.6-1.3); POTASSIUM 3.9 mmol/L (3.5-5.1)
[2021-03-26 10:32] LABS: ALBUMIN 3.2 g/dL (3.4-5.0); TOTAL BILIRUBIN 0.2 mg/dL (<0.1-1.0); TOTAL PROTEIN 6.7 g/dL (6.4-8.2)
--- NOTE | 2021-03-26 11:10 | EKG ---
[place] [address] ELECTROCARDIOGRAM REPORT Name: JENNY CAMPA Room: [place] [address] [facility]#: [id number] Admission: 03/26/21 Attend Phys: Serafin Hester Discharge: Date of : 38 Date of Service: 03/26/21 0949 Report #: [id number] THIS REPORT FOR: //name// 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 : 1940 Requested By: Carson Kelly Order Number: [id number] MD: Ric Barlow Measurements Intervals [facility] Rate: 85 P: 63 [place]: 201 QRS: 68 QRSD: 105 T: 70 QT: 404 QTc: 481 Interpretive Statements Sinus rhythm Low voltage, precordial leads Minimal ST depression, lateral leads Baseline wander in lead(s) I,III,aVL Compared to ECG 12/02/2020 15:23:35 Low QRS voltage now present Sinus tachycardia no longer present ST (T wave) deviation still present Electronically Signed On 03-26-2021 11:10:23 MACHINE UMBRELLA TIPPER by Ric Barlow [email or web address] <ELECTRONICALLY SIGNED> By: Ruth Barlow MD, [facility] 03/26/21 1110 8 8 Ruth Barlow MD, [facility] /EPI
[2021-03-26 14:19] VITALS: BP 118/50
[2021-03-26 14:45] VITALS: BP 118/50
[2021-03-26 17:07] LABS: CALCIUM 9.7 mg/dL (8.5-10.1); CREATININE 0.8 mg/dL (0.6-1.3); POTASSIUM 3.5 mmol/L (3.5-5.1)
[2021-03-26 19:02] LABS: URINE BILIRUBIN NEGATIVE (Negative); URINE BLOOD NEGATIVE (Negative); URINE COLOR YELLOW; URINE GLUCOSE-RANDOM NEGATIVE (Negative); URINE KETONES NEGATIVE (Negative); URINE LEUKOCYTES-REFLEX 1+ (Negative); URINE NITRITE-REFLEX NEGATIVE (Negative); URINE PROTEIN NEGATIVE (Negative); URINE SPECIFIC GRAVITY 1.015 (1.005-1.030); URINE UROBILINOGEN 0.2 E.U./dl (0.2-1.0)
[2021-03-26 19:20] LABS: CASTS None Seen /LPF (None Seen); CRYSTALS None Seen /LPF (None Seen); SQUAMOUS 0-3 Few /LPF (0-3); URINE CLARITY HAZY; URINE RBC None Seen /HPF (0-2); URINE WBC-REFLEX 0-5 Rare /HPF (0-5)
[2021-03-26 19:45] VITALS: BP 114/45
--- NOTE | 2021-03-27 04:08 | NUR ---
PT A&O X 4, VSS ON RA. 2L BY NC AT NIGHT. MEDS GIVEN ORDERED. USES BEDPAN TO VOID SINCE PT WAS UNABLE TO GET UP AND USE BSC WITH 2 ASSIST. CALL LIGHT WITHIN REACH. WILL CONTINUE TO MONITOR.
[2021-03-27 04:10] LABS: ABSOLUTE LYMPHOCYTES 1.1 thou/uL (0.8-5.3); ABSOLUTE MONOCYTES 0.1 thou/uL (0.0-1.2); ABSOLUTE NEUTROPHILS 6.9 thou/uL (1.6-8.1); BASOPHILS 0.5 %; EOSINOPHILS 0.2 %; HEMATOCRIT 36.2 % (37.0-47.0); HEMOGLOBIN 12.1 gm/dL (12.0-15.0); LYMPHOCYTES 13.6 %; MCH 28.9 pg (26.0-34.0); MCHC 33.5 g/dL (28.0-37.0); MCV 86.4 fL (80.0-100.0); MONOCYTES 1.4 %; MPV 8.3 fl. (7.2-11.1); NUCLEATED RBCS 0 /100WBC; PLATELET COUNT* 269 thou/uL (150-400); POLYS 84.3 %; RBC 4.19 mil/uL (4.20-5.00); RDW-CV 16.2 % (10.5-14.5); WBC 8.1 thou/uL (4.0-11.0)
[2021-03-27 08:00] VITALS: BP 108/59
--- NOTE | 2021-03-27 16:27 | NUR ---
ALERT AND ORIENTED X4. UP WITH 1 ASSIST, GAIT BELT AND WALKER. TAKES PILLS 1 AT A TIME IN APPLESAUCE. REMAINS ON O2 AT 2L/NC NEEDED DURING DAY. INCONTINENT OF BOWEL AND BLADDER TODAY X1. FLU VAC GIVEN TODAY. FALL PRECAUTIONS IN PLACE. USES CALL LIGHT WITHIN REACH.
--- NOTE | 2021-03-27 19:35 | NUR ---
CM FOLLOWUP ASSESSMENT COMPLETED WITH PT'S DAUGHTER (FREDY - [phone]). PT LIVES WITH DAUGHTER IN HOME WITH [place] TO ASSIST WITH NAVIGATING OUTSIDE STEPS. PT USES A WALKER AND OCCASIONAL WC. PT USES O2 PROVIDED BY [facility]. PT RECIVES ADL ASSITANCE FROM DAUGHTER. PT HAS HH [facility] ([phone]). PT PREVIOUSLY WENT TO [facility] FOR REHAB AND [facility] FOR SK[facility]. CM TO FOLLOWUP.
[2021-03-27 19:45] VITALS: BP 136/70
--- NOTE | 2021-03-28 04:17 | NUR ---
PT A&O X 4. MEDS GIVEN ORDERED. TRAMADOL GIVEN FOR BILAT HIP PAIN. UP TO BSC WITH 1 ASSIST. CALL LIGHT WITHIN REACH. WILL CONTINUE TO MONITOR.
[2021-03-28 04:44] LABS: HEMATOCRIT 32.7 % (37.0-47.0); HEMOGLOBIN 10.9 gm/dL (12.0-15.0); MCH 28.7 pg (26.0-34.0); MCHC 33.4 g/dL (28.0-37.0); MCV 86.1 fL (80.0-100.0); MPV 8.4 fl. (7.2-11.1); RBC 3.8 mil/uL (4.20-5.00); WBC 11.7 thou/uL (4.0-11.0)
[2021-03-28 05:03] LABS: ALBUMIN 2.9 g/dL (3.4-5.0); CALCIUM 9.4 mg/dL (8.5-10.1); CREATININE 0.7 mg/dL (0.6-1.3); MAGNESIUM 1.8 mg/dL (1.8-2.4); POTASSIUM 3.9 mmol/L (3.5-5.1); TOTAL BILIRUBIN 0.2 mg/dL (<0.1-1.0); TOTAL PROTEIN 6.5 g/dL (6.4-8.2)
[2021-03-28 15:27] VITALS: BP 138/71
--- NOTE | 2021-03-28 17:42 | NUR ---
CM ASSESSMENT PT NOT MEDICALLY CLEAR TO DC. PT MAY DC ON 03/30/21. PT TO DC WITH HH [facility] ([phone]). CM TO FOLLOWUP.
--- NOTE | 2021-03-28 18:07 | NUR ---
PATIENT RESTING IN BED, EATING DINNER. ALERT AND ORIENTED X4. IV TO LEFT FOREARM, SALINE LOCKED. X1 ASSIST WITH WALKER TO COMMODE. RECEIVED FLU IMMUNIZATION ON SATURDAY. HYDROCODONE X1 GIVEN FOR PAIN. NO QUESTIONS OR CONCERNS VOICED.
[2021-03-28 19:55] VITALS: BP 109/53
--- NOTE | 2021-03-29 05:04 | NUR ---
PT A&OX4, VSS ON ROOM AIR - 2L O2 WHILE SLEEPING, UP WITH ASSIST, IV SALINE LOCKED. PRN PO PAIN MEDS REQUESTED AND GIVEN ORDERED. PT SLEEPING WELL, WILL CONTINUE TO MONITOR.
[2021-03-29 08:00] VITALS: BP 101/49
[2021-03-29 09:15] VITALS: BP 109/53
[2021-03-29] MEDS ORDERED: TRAMADOL 50 MG50 MG PO (09:35)
[2021-03-29] MEDS ORDERED: MACROBID 100 M100 MG PO (09:35)
[2021-03-29] MEDS ORDERED: LIDOPATCH1 EACH TOP (09:35)
[2021-03-29] MEDS ORDERED: HYDROCODON-ACE1 EAC7 PO (09:35)
[2021-03-29 15:02] VITALS: BP 109/53
[2021-03-29 15:25] VITALS: BP 109/53
[2021-03-29 15:56] VITALS: BP 109/53
--- NOTE | 2021-03-29 18:09 | NUR ---
CM FOLLOWUP PT LIVES WIHT DAUGHTER GIANCARLO. PT TO DC HOME WITH GIANCARLO TODAY WITH [facility]ED HH WITH [facility] ([phone]). PT TO CONTINUE ON 2L OF O2 PROVIDED BY [place] [phone]. PT HAS NO SKILLED OR REHAB HX.
== END 2021-03-29 15:15 | disposition home or self-care (01) | DRG 191 ==
LOC: M.ERS 07:55 → M.3W 10:10 → M.TBA-ER 10:10 → M.3W 14:41
PROVIDERS: Emergency Medicine Emergency Medical Services; Internal Medicine; ADMIT Internal Medicine; ATTEND Internal Medicine
DX: J44.1 Chronic obstructive pulmonary disease with (acute) exacerbation (principal); N39.0 Urinary tract infection, site not specified; M54.50 Low back pain, unspecified; W18.39XA Other fall on same level, initial encounter; Y93.89 Activity, other specified; Y92.89 Other specified places as the place of occurrence of the external cause; Y99.8 Other external cause status; S30.0XXA Contusion of lower back and pelvis, initial encounter; X58.XXXA Exposure to other specified factors, initial encounter; Z88.2 Allergy status to sulfonamides; Z88.8 Allergy status to other drugs, medicaments and biological substances; Z91.040 Latex allergy status; Z20.822 Contact with and (suspected) exposure to COVID-19; I10 Essential (primary) hypertension; F32.9 Major depressive disorder, single episode, unspecified; E11.40 Type 2 diabetes mellitus with diabetic neuropathy, unspecified; F17.200 Nicotine dependence, unspecified, uncomplicated; E03.9 Hypothyroidism, unspecified

== ENCOUNTER 2021-04-05 10:51 | Emergency (ER) | payer MEDICARE ==
[~2021-04-05] VITALS: Ht 154.9 cm; Wt 63.0 kg
[~2021-04-05 10:51] MED LIST changes: +HYDROCODON-ACE1 EAC7 PO; +KLOR-CON M2020 MEQ PO; +LIDOPATCH1 EACH TOP; +MACROBID 100 M100 MG PO; +TRELEGY ELLIPT1 EACH
[2021-04-05 11:28] LABS: ABSOLUTE BASOPHILS 0.1 thou/uL (0.0-0.2); ABSOLUTE EOSINOPHILS 0.3 thou/uL (0.0-0.7); ABSOLUTE LYMPHOCYTES 1.8 thou/uL (0.8-5.3); ABSOLUTE MONOCYTES 0.7 thou/uL (0.0-1.2); ABSOLUTE NEUTROPHILS 6.7 thou/uL (1.6-8.1); BASOPHILS 0.6 %; HEMATOCRIT 37.7 % (37.0-47.0); HEMOGLOBIN 12.6 gm/dL (12.0-15.0); MCHC 33.3 g/dL (28.0-37.0); MONOCYTES 6.9 %; MPV 7.9 fl. (7.2-11.1); NUCLEATED RBCS 0 /100WBC; PLATELET COUNT* 302 thou/uL (150-400); POLYS 70.5 %; RBC 4.33 mil/uL (4.20-5.00); RDW-CV 16.2 % (10.5-14.5); WBC 9.5 thou/uL (4.0-11.0)
[2021-04-05 11:37] LABS: CALCIUM 9.6 mg/dL (8.5-10.1); CREATININE 0.7 mg/dL (0.6-1.3); POTASSIUM 3.2 mmol/L (3.5-5.1)
[2021-04-05 11:41] LABS: ALBUMIN 3.2 g/dL (3.4-5.0); TOTAL BILIRUBIN 0.3 mg/dL (<0.1-1.0); TOTAL PROTEIN 7.1 g/dL (6.4-8.2)
[2021-04-05 12:27] LABS: URINE BILIRUBIN NEGATIVE (Negative); URINE BLOOD NEGATIVE (Negative); URINE CLARITY CLEAR; URINE COLOR YELLOW; URINE GLUCOSE-RANDOM NEGATIVE (Negative); URINE KETONES NEGATIVE (Negative); URINE LEUKOCYTES 1+ (Negative); URINE NITRITE NEGATIVE (Negative); URINE PROTEIN NEGATIVE (Negative); URINE SPECIFIC GRAVITY 1.015 (1.005-1.030); URINE UROBILINOGEN 0.2 E.U./dl (0.2-1.0)
[2021-04-05 12:36] LABS: CASTS None Seen /LPF (None Seen); SQUAMOUS 4-10 Moderate /LPF (0-3); URINE WBC 6-15 Few /HPF (0-5)
[2021-04-05 12:37] LABS: BACTERIA 1-9 Few /HPF (None Seen); CRYSTALS None Seen /LPF (None Seen); URINE RBC 0-2 Rare /HPF (0-2)
[2021-04-05] MEDS ORDERED: CEFUROXIME500 MG PO (12:51)
[2021-04-05 13:42] VITALS: BP 134/72
--- NOTE | 2021-04-05 14:24 | EKG ---
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: : 1940 Requested By: Dashawn Kenny Order Number: [id number] MD: Kalyan Simon Measurements Intervals [place] Rate: 74 P: 88 CO: 153 QRS: 58 QRSD: 94 T: 60 QT: 393 QTc: 436 Interpretive Statements Sinus rhythm Low voltage, precordial leads Abnormal R-wave progression, early transition Compared to ECG 03/26/2021 09:49:29 ST (T wave) deviation no longer present Electronically Signed On 04-05-2021 14:24:43 TIRE CLASSIFIER by Kalyan Simon [email or web address] <ELECTRONICALLY SIGNED> By: Kalyan Simon MD, [facility] 04/05/21 1424 1144 1144 Kalyan Simon MD, [facility] /EPI
== END 2021-04-05 13:43 | disposition home or self-care (01) ==
LOC: M.ERS 10:51
PROVIDERS: Physician Assistant
DX: N39.0 Urinary tract infection, site not specified (principal); Z20.822 Contact with and (suspected) exposure to COVID-19; J44.9 Chronic obstructive pulmonary disease, unspecified; E11.9 Type 2 diabetes mellitus without complications; G62.9 Polyneuropathy, unspecified; E03.9 Hypothyroidism, unspecified; I10 Essential (primary) hypertension; G89.29 Other chronic pain; I25.10 Atherosclerotic heart disease of native coronary artery without angina pectoris; F17.210 Nicotine dependence, cigarettes, uncomplicated; Z88.6 Allergy status to analgesic agent; Z91.040 Latex allergy status; Z79.899 Other long term (current) drug therapy; Z88.2 Allergy status to sulfonamides; Z86.73 Personal history of transient ischemic attack (TIA), and cerebral infarction without residual deficits